=== PATIENT | male | born 1975 | race Caucasian/White ===

== ENCOUNTER 2022-08-09 21:43 | Observation (INO) ==
[2022-08-09] MEDS ORDERED: ONDANSETRON INJ 2 MG/ML 2 ML VIAL IV STA (22:02)
[2022-08-09] MEDS ORDERED: KETOROLAC 30 MG/ML VIAL IV STA (22:02)
--- NOTE | 2022-08-09 22:12 | Emergency Department Note ---
History of Present Illness General Chief complaint: Flank Pain Stated complaint: ABDOMINAL PAIN,TESTICAL PAIN,BACK PAIN Time Seen by Provider: 08/09/22 21:56 History of Present Illness Maximum Pain Intensity: 7 This is a 46-year-old male presenting to the emergency department for evaluation of left testicle pain that returned tonight. Patient was seen a few days ago here in the ER where ultrasound was performed as the patient has reported history of torsion in the past. Ultrasound did show good flow and he was started on doxycycline. He felt well for a few days, but had return of pain today. He rates the pain a 7/10, and it is more in his lower back on the left, although the left testicle is still involved as well. He has not had nausea or vomiting. No fevers or chills. He has not taken anything [id number] for symptoms. Home Medications Medication Instructions Recorded Confirmed Type buprenorphine 8 mg-naloxone 2 mg 1 film sublingual DAILY 08/05/22 08/09/22 History sublingual film doxycycline hyclate 100 mg capsule 100 mg PO BID 10 days #20 caps 08/05/22 08/09/22 Rx acetaminophen 500 mg tablet 1,000 mg PO Q6H PRN Pain 08/09/22 08/09/22 History (Tylenol Extra Strength) Allergies Allergy/AdvReac Type Severity Reaction Status Date / Time No Known Allergies Allergy Unknown Unverified 08/09/22 22:48 Past Med/Surg History Medical History No chronic diseases present Surgical History No significant past surgical history Social History Smoking Status: Never smoker Tobacco Type: Cigarettes Do You Dip or Chew Tobacco: Yes; Hx Alcohol Use: Yes Hx Substance Use: Yes Preferred Language: Malaysian Communication Ability: Effective 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 Beliefs That Will Affect Care: None Current Living Situation: Alone Feels Safe at Home: Yes Safety Concerns: Feels Safe At This Time Assistive Devices: None Review of Systems A total of 10 systems reviewed and were otherwise negative Physical Exam Vital Signs Vital Signs - 24 hr 08/09/22 21:51 05/24/23 23:48 Temperature 36.2 C L Temperature Source Temporal Artery Scan Pulse Rate 83 Pulse Rate [Finger] 85 Respiratory Rate 17 16 Respiratory Effort / Characteristics Non-Labored Spontaneous Non-Labored Spontaneous Respiratory Depth Normal Normal Blood Pressure [Left Arm] 160/105 H Blood Pressure Mean [Left Arm] 123 Blood Pressure Position Sitting Pulse Oximetry 100 95 Oxygen Delivery Method Room Air Room Air Sepsis Recent Fever Within 48 Hours No Sepsis New/Unexplained Change in Mental Status No Sepsis Action Taken by Nursing No Action Required VITALS: Vitals are noted on the nurse's note and reviewed by myself. Vital signs stable. GENERAL: Well-developed, well-nourished, white male, who is mildly uncomfortable appearing but overall pleasant and cooperative. HEAD: Normocephalic atraumatic. HEART: Regular rate and rhythm without murmurs gallops or rubs. LUNGS: Clear to auscultation bilaterally without wheezes, rales or rhonchi. No retractions or accessory muscle use. ABDOMEN: Positive normal bowel sounds x 4. Soft, nontender, without masses or organomegaly. No guarding or rebound tenderness. MUSCULOSKELETAL: No muscle atrophy, erythema, or edema noted. Full range of motion in all extremities. Course Administered Medications Lactated Ringer's (Lr) 1,000 mls @ 125 mls/hr IV .Q8H LISA Stop: 08/10/22 18:10 Last Admin: 08/10/22 02:31 Dose: 125 mls/hr Documented By: BREE Ketorolac Tromethamine (Ketorolac Tromethamine 15 Mg/Ml Vial) 15 mg IV Q6H PRN PRN Reason: Pain Stop: 08/15/22 02:10 Last Admin: 08/10/22 02:30 Dose: 15 mg Documented By: BREE Discontinued Medications Sodium Chloride (Nss 1000ml) 1,000 mls @ 999 mls/hr IV .Q1H1M LISA Stop: 08/09/22 23:15 Last Infusion: 08/10/22 00:59 Dose: 0 mls/hr Documented By: Admin: 08/09/22 22:20 Dose: 999 mls/hr Documented By: ALEXANDER Ceftriaxone Sodium (Rocephin) 2,000 mg in 70 mls @ 140 mls/hr IV NOW STA Stop: 08/10/22 00:24 Last Infusion: 08/10/22 00:59 Dose: 0 mls/hr Documented By: Admin: 08/10/22 00:11 Dose: 140 mls/hr Documented By: BEA Ketorolac Tromethamine (Ketorolac 30 Mg/Ml Vial) 30 mg IV NOW STA Stop: 08/09/22 22:03 Last Admin: 08/09/22 22:20 Dose: 30 mg Documented By: ALEXANDER Ondansetron HCl (Ondansetron Inj 2 Mg/Ml 2 Ml Vial) 4 mg IV NOW STA Stop: 08/09/22 22:03 Last Admin: 08/09/22 22:19 Dose: 4 mg Documented By: ALEXANDER Potassium Chloride (Potassium Chloride Crtab 20 Meq Tabcr) 40 meq PO NOW STA Stop: 08/10/22 02:12 Last Admin: 08/10/22 04:51 Dose: Not Given Documented By: BREE Tamsulosin HCl (Tamsulosin Hcl 0.4 Mg Cap) 0.4 mg PO NOW ONE Stop: 08/10/22 00:32 Last Admin: 08/10/22 00:58 Dose: 0.4 mg Documented By: BEA Medical Decision Making Differential Diagnosis Differential diagnosis: Etiologies such as shingles, pyelonephritis/UTI, renal colic, appendicitis, diverticulitis, mesenteric ischemia, torsion, aortic pathology, infections, inflammatory bowel disease, bowel obstruction, PUD, biliary pathology, as well as others were entertained. Laboratory Data 08/10/22 06:01 08/10/22 06:01 Lab Results 08/09/22 08/09/22 08/09/22 Range/Units 22:20 22:20 23:47 WBC 11.67 H (4.8-10.8) K/ul RBC 4.34 L (4.70-6.10) M/uL Hgb 13.6 L (14.0-18.0) g/dl Hct 38.0 L (42.0-52.0) % MCV 87.6 (80.0-100.0) fL MCH 31.3 (25.0-34.0) pg MCHC 35.8 (32.0-36.0) g/dL RDW Std Deviation 40.5 (36.4-46.3) fL RDW Coeff of Radha 12.7 (11.5-14.5) % Plt Count 293 (130-400) K/uL MPV 10.3 (9.4-12.4) fL Immature Gran % (Auto) 0.3 % Neut % (Auto) 76.1 % Lymph % (Auto) 14.7 % Atkinson % (Auto) 6.4 % Eos % (Auto) 2.1 % Baso % (Auto) 0.4 % Neut # (Auto) 8.87 H (1.40-6.50) K/uL Lymph # (Auto) 1.72 (1.2-3.4) K/uL Atkinson # (Auto) 0.75 H (0.11-0.59) K/uL Eos # (Auto) 0.24 (0-0.50) K/uL Baso # (Auto) 0.05 (0-0.2) K/uL Immature Gran # (Auto) 0.04 (0.01-0.20) K/uL Sodium 139 (136-145) mmol/L Potassium 3.4 L (3.5-5.1) mmol/L Chloride 103 (98-107) mmol/L Carbon Dioxide 27 (21-32) mmol/L Anion Gap 9 (3-11) BUN 8 (6-23) mg/dl Creatinine 1.18 (0.6-1.4) mg/dl Est Cr Clr Drug Dosing 106.6 ml/min Est GFR ( Amer) 85.9 ml/min Est GFR (Non-Af Amer) 74.1 ml/min BUN/Creatinine Ratio 6.8 L (10-20) Glucose 87 (70-99(Fasting)) mg/dl Calcium 8.7 (8.6-10.3) mg/dl Total Bilirubin 0.6 (0.2-1.0) mg/dl AST 22 (13-39) U/L ALT 25 (7-52) U/L Alkaline Phosphatase 77 (34-104) U/L Total Protein 6.9 (6.0-8.3) gm/dl Albumin 4.2 (3.4-5.0) gm/dl Globulin 2.7 (2.5-4.0) gm/dl Albumin/Globulin Ratio 1.6 (0.9-2) Lipase 55 (11-82) U/L Urine Color Yellow Urine Appearance Clear (Clear) Urine pH 7.5 (4.5-7.5) Ur Specific [place] 1.017 (1.000-1.030) Urine Protein Negative (Negative) Urine Glucose (UA) Negative (Negative) Urine Ketones Negative (Negative) Urine Blood Negative (Negative) Urine Nitrite Negative (Negative) Urine Bilirubin Negative (Negative) Urine Urobilinogen Negative (Negative) Ur Leukocyte Esterase Negative (Negative) SARS-CoV-2, RNA, NAAT (NEGATIVE) 08/10/22 Range/Units 00:12 WBC (4.8-10.8) K/ul RBC (4.70-6.10) M/uL Hgb (14.0-18.0) g/dl Hct (42.0-52.0) % MCV (80.0-100.0) fL MCH (25.0-34.0) pg MCHC (32.0-36.0) g/dL RDW Std Deviation (36.4-46.3) fL RDW Coeff of Radha (11.5-14.5) % Plt Count (130-400) K/uL MPV (9.4-12.4) fL Immature Gran % (Auto) % Neut % (Auto) % Lymph % (Auto) % Atkinson % (Auto) % Eos % (Auto) % Baso % (Auto) % Neut # (Auto) (1.40-6.50) K/uL Lymph # (Auto) (1.2-3.4) K/uL Atkinson # (Auto) (0.11-0.59) K/uL Eos # (Auto) (0-0.50) K/uL Baso # (Auto) (0-0.2) K/uL Immature Gran # (Auto) (0.01-0.20) K/uL Sodium (136-145) mmol/L Potassium (3.5-5.1) mmol/L Chloride (98-107) mmol/L Carbon Dioxide (21-32) mmol/L Anion Gap (3-11) BUN (6-23) mg/dl Creatinine (0.6-1.4) mg/dl Est Cr Clr Drug Dosing ml/min Est GFR ( Amer) ml/min Est GFR (Non-Af Amer) ml/min BUN/Creatinine Ratio (10-20) Glucose (70-99(Fasting)) mg/dl Calcium (8.6-10.3) mg/dl Total Bilirubin (0.2-1.0) mg/dl AST (13-39) U/L ALT (7-52) U/L Alkaline Phosphatase (34-104) U/L Total Protein (6.0-8.3) gm/dl Albumin (3.4-5.0) gm/dl Globulin (2.5-4.0) gm/dl Albumin/Globulin Ratio (0.9-2) Lipase (11-82) U/L Urine Color Urine Appearance (Clear) Urine pH (4.5-7.5) Ur Specific [place] (1.000-1.030) Urine Protein (Negative) Urine Glucose (UA) (Negative) Urine Ketones (Negative) Urine Blood (Negative) Urine Nitrite (Negative) Urine Bilirubin (Negative) Urine Urobilinogen (Negative) Ur Leukocyte Esterase (Negative) SARS-CoV-2, RNA, NAAT NEGATIVE (NEGATIVE) Imaging Data Radiologist's Impression: Abdomen/Pelvis CT 08/09/22 22:02 Exam(s): CT ABDOMEN + PELVIS Without Contrast EXAM: CT Abdomen and Pelvis Without Intravenous Contrast CLINICAL HISTORY: Reason for exam: left flank pain. TECHNIQUE: Axial computed tomography images of the abdomen and pelvis without intravenous contrast. CTDI is 9.85 mGy and DLP is 566.71 mGy-cm. Automated exposure control was utilized for the study. A dose lowering technique was utilized adhering to the principles of ALARA. COMPARISON: None. FINDINGS: Lung bases: Unremarkable. No mass. No consolidation. ABDOMEN: Liver: Unremarkable. Gallbladder and bile ducts: Unremarkable. No calcified stones. No ductal dilation. Pancreas: Unremarkable. No ductal dilation. Spleen: Unremarkable. No splenomegaly. Adrenals: Unremarkable. No mass. Kidneys and ureters: Obstructing left ureteropelvic junction calculus measuring approximately 6 mm with mild hydroureteronephrosis. Fat stranding about the left kidney is also seen. Stomach and bowel: Unremarkable. No obstruction. No mucosal thickening. PELVIS: Appendix: No findings to suggest acute appendicitis. Bladder: Unremarkable. No stones. Reproductive: Unremarkable as visualized. ABDOMEN and PELVIS: Intraperitoneal space: Unremarkable. No free air. No significant fluid collection. Bones/joints: Right pars defect of L5. Degenerative change seen in the spine. No acute fracture. No dislocation. Soft tissues: Unremarkable. Vasculature: Unremarkable. No abdominal aortic aneurysm. Lymph nodes: Unremarkable. No enlarged lymph nodes. IMPRESSION: Obstructing left ureteropelvic junction calculus measuring approximately 6 mm with mild hydroureteronephrosis. Fat stranding about the left kidney is also seen. Superimposed infection not excluded. Clinical correlation is recommended. Electronically signed by: Ricky Mendez MD 08/09/22 23:43 PM Scrotum Ultrasound 08/09/22 22:02 Exam(s): US SCROTAL EXAM: US Scrotum CLINICAL HISTORY: Reason for exam: left testicle pain. TECHNIQUE: Real-time ultrasound of the scrotum with color Doppler and image documentation. COMPARISON: Testicular ultrasound 08/05/2022. FINDINGS: Right testicle: Calcifications seen in the right testicle. No torsion. Left testicle: Unremarkable. No mass. No torsion. Epididymides: Left epididymal head cyst measuring 3 mm. Scrotum: Small bilateral hydroceles. IMPRESSION: No sonographic evidence of torsion. Electronically signed by: Ricky Mendez MD 08/09/22 23:46 PM MDM Narrative Physical exam and history were performed. Nursing notes, EMR, and Medication List were personally reviewed. No social concerns were identified as barriers to patients care. Patient appears to have return of pain to his left testicle. He is also having change in pain from when he was seen a few days ago, as he reports more left- sided back pain. IV access was established and labs were obtained. He was hydrated with normal saline and given IV Toradol and IV Zofran. Patient is with reported history of torsion in the past. He was sent to ultrasound to rule out torsion. He was sent to CT scan as well for further evaluation. Patient's blood work is as above and was reviewed. He does not have a significantly elevated white blood cell count, gross anemia, bandemia, or significant electrolyte imbalance. Transaminases are not diagnostic. Urine is without evidence of infection. Imaging studies were reviewed by myself and radiology. Ultrasound does not show evidence of torsion. CT scan is concerning as it does show a 6 mm mid ureteral calculi. This is likely causing his symptoms. There is concern on CT that there is stranding which may suggest ascending infectious process. He was started on Rocephin here in the ER. Overall the patient does not appear well for discharge home. Case was discussed with both the on-call hospitalist team and the on-call urology team. Please see their dictations for further patient course, plan, and disposition. The chart was completed utilizing [employer] Speech Voice Recognition Software. Grammatical errors, random word insertions, pronoun errors, and incomplete sentences are an occasional consequence of this system due to software limitations, ambient noise, and hardware issues. Any formal questions or concerns about the content, text, or information contained within the body of this dictation should be directly addressed to the provider for clarification. . Impression & Plan Ureterolithiasis Discharge Plan Visit Data Chief Complaint: Flank Pain Stated Complaint: ABDOMINAL PAIN,TESTICAL PAIN,BACK PAIN ED Provider: Aliyah Ac ED Midlevel Provider: Bandar Marcelino Discharge Problem: Ureterolithiasis Patient Disposition: Admitted As Inpatient Discharge Instructions Interventions: ED Discharge Assessment Last Done: 08/10/22 01:55
[2022-08-09] MEDS ORDERED: SODIUM CHLORIDE 0.9% 1000ML 1,000 ML IV SCH (22:15)
[2022-08-09 22:49] LABS: Basophils # (auto) 0.05 K/uL (0-0.2); Basophils % (auto) 0.4 %; Eosinophils # (auto) 0.24 K/uL (0-0.50); Eosinophils % (auto) 2.1 %; Hemoglobin 13.6 g/dl (14.0-18.0); Immature Granulocytes # (auto) 0.04 K/uL (0.01-0.20); Immature Granulocytes % (auto) 0.3 %; Lymphocytes # (auto) 1.72 K/uL (1.2-3.4); Lymphocytes % (auto) 14.7 %; Mean Corpuscular Hemoglobin 31.3 pg (25.0-34.0); Mean Corpuscular Hgb Conc 35.8 g/dL (32.0-36.0); Mean Corpuscular Volume 87.6 fL (80.0-100.0); Mean Platelet Volume 10.3 fL (9.4-12.4); Monocytes # (auto) 0.75 K/uL (0.11-0.59); Monocytes % (auto) 6.4 %; Neutrophils # (auto) 8.87 K/uL (1.40-6.50); Neutrophils % (auto) 76.1 %; Platelet Count 293 K/uL (130-400); RDW Coefficient of Variation 12.7 % (11.5-14.5); RDW Standard Deviation 40.5 fL (36.4-46.3); Red Blood Count 4.34 M/uL (4.70-6.10); White Blood Count 11.67 K/ul (4.8-10.8)
[2022-08-09 23:05] LABS: Albumin Globulin Ratio 1.6 (0.9-2); Albumin Level 4.2 gm/dl (3.4-5.0); BUN Creatinine Ratio 6.8 (10-20); Bilirubin,Total 0.6 mg/dl (0.2-1.0); Calcium 8.7 mg/dl (8.6-10.3); Creatinine Clr Calc Pharmacy 106.6 ml/min; Est GFR (African American) 85.9 ml/min; Est GFR (Non-African American) 74.1 ml/min; Globulin 2.7 gm/dl (2.5-4.0); Potassium 3.4 mmol/L (3.5-5.1); Total Protein 6.9 gm/dl (6.0-8.3)
--- NOTE | 2022-08-09 23:44 | CT Scan Report ---
Exam(s): CT ABDOMEN + PELVIS Without Contrast EXAM: CT Abdomen and Pelvis Without Intravenous Contrast CLINICAL HISTORY: Reason for exam: left flank pain. TECHNIQUE: Axial computed tomography images of the abdomen and pelvis without intravenous contrast. CTDI is 9.85 mGy and DLP is 566.71 mGy-cm. Automated exposure control was utilized for the study. A dose lowering technique was utilized adhering to the principles of ALARA. COMPARISON: None. FINDINGS: Lung bases: Unremarkable. No mass. No consolidation. ABDOMEN: Liver: Unremarkable. Gallbladder and bile ducts: Unremarkable. No calcified stones. No ductal dilation. Pancreas: Unremarkable. No ductal dilation. Spleen: Unremarkable. No splenomegaly. Adrenals: Unremarkable. No mass. Kidneys and ureters: Obstructing left ureteropelvic junction calculus measuring approximately 6 mm with mild hydroureteronephrosis. Fat stranding about the left kidney is also seen. Stomach and bowel: Unremarkable. No obstruction. No mucosal thickening. PELVIS: Appendix: No findings to suggest acute appendicitis. Bladder: Unremarkable. No stones. Reproductive: Unremarkable as visualized. ABDOMEN and PELVIS: Intraperitoneal space: Unremarkable. No free air. No significant fluid collection. Bones/joints: Right pars defect of L5. Degenerative change seen in the spine. No acute fracture. No dislocation. Soft tissues: Unremarkable. Vasculature: Unremarkable. No abdominal aortic aneurysm. Lymph nodes: Unremarkable. No enlarged lymph nodes. IMPRESSION: Obstructing left ureteropelvic junction calculus measuring approximately 6 mm with mild hydroureteronephrosis. Fat stranding about the left kidney is also seen. Superimposed infection not excluded. Clinical correlation is recommended. Electronically signed by: Ricky Mendez MD 08/09/22 23:43 PM
--- NOTE | 2022-08-09 23:47 | Ultrasound Report ---
Exam(s): US SCROTAL EXAM: US Scrotum CLINICAL HISTORY: Reason for exam: left testicle pain. TECHNIQUE: Real-time ultrasound of the scrotum with color Doppler and image documentation. COMPARISON: Testicular ultrasound 08/05/2022. FINDINGS: Right testicle: Calcifications seen in the right testicle. No torsion. Left testicle: Unremarkable. No mass. No torsion. Epididymides: Left epididymal head cyst measuring 3 mm. Scrotum: Small bilateral hydroceles. IMPRESSION: No sonographic evidence of torsion. Electronically signed by: Ricky Mendez MD 08/09/22 23:46 PM
[2022-08-09] MEDS ORDERED: cefTRIAXone SODIUM 2,000 MG/70 ML BAG IV STA (23:55)
[2022-08-09 23:57] LABS: Appearance Urine Clear (Clear); Bilirubin Urine Negative (Negative); Blood Urine Negative (Negative); Color Urine Yellow; Glucose Urine UA Negative (Negative); Ketones Urine Negative (Negative); Leukocyte Esterase Urine Negative (Negative); Nitrite Urine Negative (Negative); Protein Urine Negative (Negative); Specific Gravity Urine 1.017 (1.000-1.030); Urobilinogen Urine Negative (Negative); pH Urine 7.5 (4.5-7.5)
[2022-08-10] MEDS ORDERED: TAMSULOSIN HCL 0.4 MG CAP PO ONE (00:31)
--- NOTE | 2022-08-10 00:35 | Urology Consultation ---
Date of Consultation August 10, 2022 Assessment & Plan (1) Nephrolithiasis: I discussed with the treating clinician in the emergency department and as the patient has had recurrent pain and is noted to have a 6 mm obstructing stone with a potential superimposed infection he feels admission is warranted. He is having the hospitalist admit the patient and we recommend proceeding as follows from a urologic perspective: Provide analgesics Provide antiemetics Antibiotics in the form of Rocephin have been initiated. These should be continued. Although the patient's urinalysis is not indicative of infection there is some fat stranding around his left kidney. I therefore ordered a urine culture which can be followed and can assist with tailoring future antibiotic therapy. Flomax to be initiated for expulsive therapy. I have initiated the first dose of this medication Intravenous fluids to be provided for hydration purposes N.p.o. status should be implemented. The patient be reassessed the morning of 08/10/2022 to determine if patient will require cystoscopic intervention. At the present time the patient is afebrile with only a slight leukocytosis. He is normotensive without tachycardia. He also does not have acute kidney injury and is currently pain-free. I therefore feel we should trend trial of conservative stone passage this evening without the need for an emergency procedure. I have discussed with the patient that if he is unable to pass his stone consideration will be given to performing a cystoscopy. Additional recommendations be forthcoming based on his clinical course as it unfolds. History of Present Illness Reason for Consultation: Nephrolithiasis History of Present Illness This is a 46-year-old male who presented to the emergency department secondary to 5 days of left flank pain. Patient notes that the flank radiates across the left frontal portion of his abdomen into his left testicles. He has had some sweats and chills and reports a subjective fever although he admits he did not have a functional thermometer at home to check his temperature. He denies any nausea or vomiting. He denies any dysuria or hematuria. He notes that sometimes the pain does improve somewhat while he urinates. Patient says that he is able to urinate without difficulty. He says he has never had any kidney stones in the past. His most recent oral intake was approximately 2 hours ago at which time he would consume some liquids before arrival to the emergency department. Of note, the patient did present to the emergency department on 08/05/2022 with similar complaints. During this visit he did have labs were CBC revealed white blood cell count platelet count were normal. Hemoglobin and hematocrit were 13.5 and 39.4. Chemistry profile showed sodium was 141 with a potassium of 3.4. His BUN and creatinine were normal on this study. A urinalysis at that time revealed turbid urine with 3+ blood. There is 1+ bacteria on the study but no pyuria and negative leukocyte Estrace and negative nitrites. Imaging at that time consisted of a scrotal ultrasound that was essentially normal with only a trace left hydrocele and no comment about any testicular torsion. During this visit the patient was given 1 dose of intramuscular Rocephin and he was given a prescription for doxycycline to cover for possible orchitis or epididymitis as his primary complaint at that time was testicular pain. He was instructed to follow-up with urology or return to the emergency department for worsening symptoms Since arrival to hospital this evening the patient has had labs and imaging which I independently reviewed. The patient did have a scrotum ultrasound that showed no evidence of testicular torsion bilateral. He did have small bilateral hydroceles and a left epididymal cyst measuring approximately [address] scan of the abdomen and pelvis showed the patient had an obstructing 6 mm kidney stone at the left ureteropelvic junction. There is some fat stranding around the left kidney. Because of this fat stranding the interpreting radiologist could not exclude a superimposed infection. A CBC revealed a slight elevation of his white blood cell count at 11.6. Hemoglobin and hematocrit were 13.6 and 38.0. Platelet count was 293,000. CBC revealed sodium was within normal range and potassium was 3.4. BUN and creatinine were both noted to be normal. Patient did not have any elevation of LFTs or lipase. A urinalysis was not indicative of infection and a COVID test was pending. I did question the patient about his functional status and the patient says that he can easily walk 1 mile on a flat surface or he can negotiate 3-4 flights of steps without any chest pain or exertional dyspnea. He also reports he is not diabetic. At the time of my interview he was resting comfortably in bed and he was in no distress. By the time of my interview with the patient he also noted that his pain had resolved for the present time. Concerning past medical history the patient denies any medical problems except a past history of opioid dependence Concerning past surgical history he denies any surgeries Concerning social history he says he is a non-smoker Concerning family history he denies family history of coronary artery disease Allergies Allergy/AdvReac Type Severity Reaction Status Date / Time No Known Allergies Allergy Unknown Unverified 08/09/22 22:48 Home Medications Medication Instructions Recorded Confirmed Type buprenorphine 8 mg-naloxone 2 mg 1 film sublingual DAILY 08/05/22 08/09/22 History sublingual film doxycycline hyclate 100 mg capsule 100 mg PO BID 10 days #20 caps 08/05/22 08/09/22 Rx acetaminophen 500 mg tablet 1,000 mg PO Q6H PRN Pain 08/09/22 08/09/22 History (Tylenol Extra Strength) Patient History Medical History No chronic diseases present Surgical History No significant past surgical history Social History Smoking Status: Current some day smoker Tobacco Type: Cigarettes Preferred Language: Jordanian Feels Safe at Home: Yes Review of Systems Constitutional: + chills and + sweats; no fever Ear, Nose, Mouth, Throat: no hearing loss Respiratory: no cough and no dyspnea Cardiovascular: no chest pain Gastrointestinal: + abdominal pain (Radiating from left); no nausea and no vomiting Genitourinary: + as per Subjective / HPI Musculoskeletal: + back pain (Left flank) Integumentary: no rash Neurologic: no localized weakness Physical Exam Constitutional: WD/WN, vitals as above Eyes: no conjunctival abnormality ENMT: Ears: no hearing impairment and no external ear abnormality Mouth: no oropharynx abnormality Neck: trachea midline Respiratory: normal respiratory effort, lungs clear to auscultation Cardiovascular: Rate/Rhythm: regular rate and regular rhythm Vessels: dorsalis pedis pulses present and radial pulses present Gastrointestinal (Abdomen): Abdomen is rotund but soft. It is nondistended and nonrigid. Bowel sounds are present. Patient had very minor tenderness to palpation in the left lower quadrant but was otherwise free of pain with palpation. There is no rebound tenderness or guarding. Musculoskeletal: No calf tenderness. Feet are warm and nonmottled Skin: no rashes Neurologic: moves all extremities Psychiatric: A+Ox3, euthymic affect Genitourinary: No CVA tenderness with percussion at the time of my exam Results & Data Vital Signs (Past 12 Hours) Vital Signs Temp Pulse Pulse Resp BP Pulse Ox O2 Del Method 08/09/22 23:48 85 16 160/105 H 95 Room Air 08/09/22 21:51 36.2 C L 83 17 100 Room Air PG Care Time/CCT Total # of Minutes Spent Total Time Spent with Patient: Total time spent is greater than 50% in coordination of care (as documented) at patient's floor/unit and/or counseling patient: Coding Level of Care Code 69713 IN/OBS CONSULT LVL 5,80M Diagnoses Nephrolithiasis N20.0
--- NOTE | 2022-08-10 00:42 | History & Physical Report ---
Date of Service August 10, 2022 Assessment & Plan (1) Ureterolithiasis: Plan: -CTAP findings with 6 mm obstructing UPJ stone -Noted mild leukocytosis + bacteriuria though pt afebrile -S/p ceftriaxone given in ED, will continue -Urology consulted, appreciate recommendations -Zofran PRN nausea -Pain control- Tylenol PRN, Toradol PRN -IV fluid hydration ongoing -Continue Flomax -UCx pending -Trend CBC, BMP (2) Opioid use disorder: Plan: -Continue suboxone (3) Hypokalemia: Plan: -K 3.4 on admission -Repleted in ED -Monitor BMP Plan FENGI: NPO Code status: Full DVT ppx: SCDs, deferring chemoprophylaxis with ongoing hematuria Isolation: None Dispo: Medical/surgical History of Present Illness Chief Complaint: flank pain Primary Care Provider: [facility] PCP Pt is 46 yo M with PMH opioid use disorder on suboxone, previous testicular torsion presenting with flank pain. Pt did have ED visit on 08/05 for L testicular pain and hematuria. ER evaluation did not reveal torsion on US. He was discharged with doxycycline for concern for orchitis/epididymitis. He continues to have testicular flank with associated L flank pain radiating to lower L back and arrived back to ER. Reports subjective fever and chills, denies N/V, dysuria. Still having intermittent hematuria. Pt arrived to ER with BP 160/105, otherwise hemodynamically stable. Initial evaluation significant for WBC 11.7, K 3.4, UA with RBCs and bacteria. Repeat scrotal US w/o torsion. CTAP with obstructing L UPJ calculus 6mm with mild hydroureteronephrosis. ER interventions include Zofran, fluid repletion, ceftriaxone, Toradol. At present, pt reports mild flank pain relieved by Toradol. No new symptoms. Allergies Allergy/AdvReac Type Severity Reaction Status Date / Time No Known Allergies Allergy Unknown Unverified 08/09/22 22:48 Home Medications Medication Instructions Recorded Confirmed Type buprenorphine 8 mg-naloxone 2 mg 1 film sublingual DAILY 08/05/22 08/09/22 History sublingual film acetaminophen 500 mg tablet 1,000 mg PO Q6H PRN Pain 08/09/22 08/09/22 History (Tylenol Extra Strength) oxybutynin chloride 5 mg 5 mg PO DAILY #20 tabs 08/10/22 Rx tablet,extended release 24 hr (Ditropan XL) tamsulosin 0.4 mg capsule (Flomax) 0.4 mg PO DAILY #30 caps 08/10/22 Rx Past Med/Surg History Medical History No chronic diseases present Surgical History No significant past surgical history Social History Smoking Status: Never smoker Tobacco Type: Cigarettes Do You Dip or Chew Tobacco: Yes; Hx Alcohol Use: Yes Hx Substance Use: Yes Preferred Language: Lebanese Communication Ability: Effective Bag Shop Worker Required: No Beliefs That Will Affect Care: None Current Living Situation: Alone Feels Safe at Home: Yes Assistive Devices: None Review of Systems Review of Systems: Per HPI/Subjective Physical Exam Physical Exam: General: well-appearing, no acute distress HEENT: PERRL, EOMI, conjunctivae clear without injection, anicteric sclerae, moist mucous membranes, clear oropharynx without exudate or erythema Neck: supple, trachea midline, no thyromegaly, no JVD, no cervical lymphadenopathy CV: RRR, normal S1 and S2, no murmurs Resp: CTAB, no increased work of breathing, no crackles or wheezes Abd: Soft, nondistended, no guarding or rebound, no hepatosplenomegaly, +tender to L flank and L CVA tenderness, no suprapubic tenderness MSK: Normal bulk of all four extremities Neuro: AOx3, no focal motor or sensory deficits Skin: no rashes or lesions, warm and dry Ext: no LE peripheral edema or erythema, capillary refill <2s in all four extremities, 2+ LE peripheral pulses b/l Results & Data Results & Data Vital Signs (Past 12 Hours) Vital Signs Temp Pulse Pulse Resp BP Pulse Ox O2 Del Method 08/09/22 23:48 85 16 160/105 H 95 Room Air 08/09/22 21:51 36.2 C L 83 17 100 Room Air Supervising Physician Co-Signing Physician Notes Attending addendum: I have physically seen this patient, have supervised the medical residents activities, and agree with the H&P unless as otherwise noted. Assessment and Plan: 6 mm left UPJ stone/hydronephrosis- N.p.o. after midnight Status post 1 L normal saline in ED, Toradol 30 mg IV Ceftriaxone 2 g IV daily Follow urine culture sensitivity Zofran 4 mg IV every 6 hours as needed Tamsulosin 0.4 mg at bedtime Consult urology Remaining orders and notations as noted Resident Activity Tracking Resident Involvement: Resident Care Provided Care Provided: Adult Hospital Medicine
[2022-08-10] MEDS ORDERED: KETOROLAC TROMETHAMINE 15 MG/ML VIAL IV PRN (02:11)
[2022-08-10] MEDS ORDERED: cefTRIAXone SODIUM 1,000 MG in DEXTROSE 5% AD-VAN 50 ML IV SCH (02:11)
[2022-08-10] MEDS ORDERED: ACETAMINOPHEN 1,000 MG/100 ML VIAL IV PRN (02:11)
[2022-08-10] MEDS ORDERED: POTASSIUM CHLORIDE CRTAB 20 MEQ TABCR PO STA ×2 (02:11→14:31)
[2022-08-10] MEDS: LACTATED RINGER'S 1,000 ML IV SCH ×2 (02:31→11:58)
[2022-08-10 06:30] LABS: Hematocrit (blood only) 36.2 % (42.0-52.0); Hemoglobin 12.9 g/dl (14.0-18.0); Mean Corpuscular Hemoglobin 30.9 pg (25.0-34.0); Mean Corpuscular Hgb Conc 35.6 g/dL (32.0-36.0); Mean Corpuscular Volume 86.6 fL (80.0-100.0); Mean Platelet Volume 10.4 fL (9.4-12.4); Platelet Count 266 K/uL (130-400); RDW Coefficient of Variation 12.8 % (11.5-14.5); RDW Standard Deviation 40.3 fL (36.4-46.3); Red Blood Count 4.18 M/uL (4.70-6.10); White Blood Count 8.97 K/ul (4.8-10.8)
[2022-08-10 06:49] LABS: BUN Creatinine Ratio 8.6 (10-20); Calcium 8.6 mg/dl (8.6-10.3); Creatinine Clr Calc Pharmacy 120.1 ml/min; Est GFR (African American) 98.9 ml/min; Est GFR (Non-African American) 85.3 ml/min; Potassium 3.4 mmol/L (3.5-5.1)
--- NOTE | 2022-08-10 08:01 | Urology Progress Note ---
Date of Service August 10, 2022 Assessment & Plan (1) Ureterolithiasis: Plan: Follow-up of 6mm left proximal ureteral stone. He is afebrile and hemodynamically stable. Urine culture is pending. He is on IV Rocephin. Denies stone passage overnight. Continues to be symptomatic with episodes of pain. Discussed options for stone management including trial of passage vs surgical intervention while inpatient in the form of left ureteral stent placement today. We discussed outpatient surgical options including ESWL or ureteroscopy, laser lithotripsy, and stent placement if pain is controlled and he can be discharged to home. Procedures, success rates, risks, benefits and clinical courses reviewed. Stone free rates were also discussed as well as possibility of multiple procedures. Ureteral stents were discussed as well as post-operative issues and pain management. - Patient wishes to proceed with surgical intervention today. - Plan for cystoscopy, left retrograde pyelogram and left ureteral stent placement today. - Risks and benefits of procedure to be reviewed with patient by Dr. Ferrell. OR notified. - We discussed need for stone treatment at a later date. He verbalizes good understanding. - Expected clinical course reviewed, all questions answered. - Will cover with scheduled IV Ceftriaxone preoperatively. - Keep NPO for procedure. - Continue supportive care and management per hospital medicine service. Admission and Anticipated Discharge Date Admission Date: August 10, 2022 Supervising Physician Co-Signing Physician Notes Discussed patient with RICKEY. Agree with plan. Plan to go to OR for cysto, left retrograde, left stent Subjective Patient seen and examined at bedside this morning. He is awake and resting in bed. Denies stone passage overnight. Reports intermittent discomfort overnight in left flank as well as left abdomen and groin at times. No nausea or vomiting. No fever or chills. He is voiding without difficulty. Denies dysuria or hematuria. He is NPO. No prior stone history. Review of Systems Constitutional: as per Subjective / HPI Gastrointestinal: as per Subjective / HPI Genitourinary: + as per Subjective / HPI Physical Exam Constitutional: well developed and well nourished; no acute distress and not ill appearing Neck: trachea midline Respiratory: normal respiratory effort; no respiratory distress and no labored breathing Cardiovascular: Rate/Rhythm: regular rate Extremities: no pedal edema Gastrointestinal (Abdomen): Inspection/Auscultation: abdomen normal to inspection; abdomen not distended Percussion/Palpation: abdomen soft; abdomen nontender Musculoskeletal: Head/Neck/Chest: normocephalic and head atraumatic Neurologic: moves all extremities and awake Psychiatric: Orientation: alert and oriented x 3 Genitourinary: no CVA tenderness Results & Data Vital Signs (Past 12 Hours) Vital Signs Temp Pulse Pulse Resp BP Pulse Ox O2 Del Method 08/10/22 07:40 36.5 C 77 18 152/87 H 98 Room Air 08/10/22 02:00 36.6 C 74 14 160/90 H 95 Room Air 08/10/22 01:54 82 16 141/110 H 96 Room Air 08/10/22 01:55 Room Air 08/10/22 01:03 80 16 149/97 H 98 Room Air 08/09/22 23:48 85 16 160/105 H 95 Room Air 08/09/22 21:51 36.2 C L 83 17 100 Room Air PG Care Time/CCT Total # of Minutes Spent Total Time Spent with Patient: Total time spent is greater than 50% in coordination of care (as documented) at patient's floor/unit and/or counseling patient: Coding Level of Care Code None Diagnoses Ureterolithiasis N20.1
[2022-08-10] MEDS ORDERED: TAMSULOSIN HCL 0.4 MG CAP PO SCH (09:00)
[2022-08-10] MEDS ORDERED: BUPRENORPHINE/NALOXONE 8/2 MG TAB SL SCH ×2 (09:00)
[2022-08-10] MEDS ORDERED: fentaNYL citrate PF 100 MCG/2 ML VIAL ONE (09:47)
[2022-08-10] MEDS ORDERED: PROPOFOL IV EMULSION 10 MG/ML 20 ML VIAL IV ONE ×2 (09:47→11:08)
[2022-08-10] MEDS ORDERED: MIDAZOLAM HCL 1 MG/ML 2ML VIAL ONE (09:47)
[2022-08-10] MEDS ORDERED: LIDOCAINE 2% 2 ML VIAL/AMP(20MG/ML) INFIL ONE (09:47)
[2022-08-10] MEDS ORDERED: NALOXONE HCL 0.4 MG/1 ML VIAL/CARP IV PRN (10:42)
[2022-08-10] MEDS ORDERED: ATROPINE SULFATE 0.1 MG/ML 10ML SYR IV PRN (10:42)
[2022-08-10] MEDS ORDERED: PROMETHAZINE HCL 12.5 MG in SODIUM CHLORIDE 0.9% 50 ML IV PRN (10:42)
[2022-08-10] MEDS ORDERED: FLUMAZENIL 0.1 MG/1 ML 10 ML VIAL IV PRN (10:42)
[2022-08-10] MEDS ORDERED: ONDANSETRON INJ 2 MG/ML 2 ML VIAL IV PRN (10:42)
[2022-08-10] MEDS ORDERED: ePHEDrine sulfate 50 MG/ML AMP IV PRN (10:42)
[2022-08-10] MEDS ORDERED: LABETALOL HCL IV 5 MG/ML 20ML IV PRN (10:42)
[2022-08-10] MEDS ORDERED: fentaNYL citrate PF 100 MCG/2 ML VIAL IV PRN (10:42)
--- NOTE | 2022-08-10 10:42 | Anesthesiology Consultation ---
Date of Service August 10, 2022 Assessment & Plan Chart Review Chart Review: Acceptable Risk for Surgery and Patient NOT seen in Pre Admission Testing Consults Requested none ASA ASA2 Proposed Anesthesia Anesthesia Type: General Risk / Benefits Reviewed With: PT / POA / Parent / Guardian, Accepts Plan and Informed Consent Obtained History Surgery Operation Date: 08/10/22 07:00 Proposed Procedures p Cystoscopy Left Retrograde Pyelogram, Left Ureteral Stent - Preston Ferrell MD Height/Weight Height: 5 ft 11 in Weight: 126 kg Allergies Allergy/AdvReac Type Severity Reaction Status Date / Time No Known Allergies Allergy Unknown Unverified 08/09/22 22:48 Medications Home Medications Medication Instructions Recorded Confirmed Last Taken buprenorphine 8 mg-naloxone 2 mg 1 film sublingual DAILY 08/05/22 08/09/22 08/09/22 17:30 sublingual film doxycycline hyclate 100 mg capsule 100 mg PO BID 10 days #20 caps 08/05/22 08/09/22 08/09/22 11:00 acetaminophen 500 mg tablet 1,000 mg PO Q6H PRN Pain 08/09/22 08/09/22 08/09/22 (Tylenol Extra Strength) Active Medications Generic Name Dose Route Start Last Admin Trade Name Freq PRN Reason Stop Dose Admin Buprenorphine/Naloxone 0.5 tab 08/10/22 09:00 08/10/22 09:12 Buprenorphine/Naloxone 8/2 Mg Tab SL 09/09/22 08:59 Not Given BID LISA Acetaminophen 1,000 mg in 100 mls @ 400 mls/hr 08/10/22 02:11 08/10/22 09:11 Ofirmev IV 08/13/22 02:10 Infused Q8H PRN Infusion pain- second line Lactated Ringer's 1,000 mls @ 125 mls/hr 08/10/22 02:11 08/10/22 02:31 Lr IV 08/10/22 18:10 125 mls/hr .Q8H LISA Administration Ketorolac Tromethamine 15 mg 08/10/22 02:11 08/10/22 02:30 Ketorolac Tromethamine 15 Mg/Ml Vial IV 08/15/22 02:10 15 mg Q6H PRN Administration Pain Tamsulosin HCl 0.4 mg 08/10/22 09:00 08/10/22 08:14 Tamsulosin Hcl 0.4 Mg Cap PO 09/09/22 08:59 0.4 mg QAM LISA Administration NPO Date Last Intake of Fluids: 08/10/22 Time Last Intake of Fluids: 08:00 Date Last Intake of Solids: 08/08/22 Time Last Intake of Solids: 18:00 Past Medical History Medical History No chronic diseases present Exercise / Class Metabolic Activity II 4-5 Yardwork/Stairs/Walk up hill Past Surgical History Surgical History No significant past surgical history Past Anesthesia History No Hx of Anesthesia Complications and No Family Hx of Anesthesia Complications History of PONV No Hx of PONV and No Hx of Motion Sickness Social History Smoking Status: Never smoker tobacco type: smokeless tobacco Do You Dip or Chew Tobacco: Yes Hx Alcohol Use: Yes alcohol intake frequency: a few times a week Hx Substance Use: Yes Physical Exam Vital Signs Last Vital Signs Temp 36.6 C 08/10/22 09:39 Pulse 73 08/10/22 09:39 Resp 16 08/10/22 09:39 BP 159/86 H 08/10/22 09:39 Pulse Ox 96 08/10/22 09:39 O2 Del Method Room Air 08/10/22 09:39 Constitutional + morbidly obese ENMT Mouth: no dentition abnormality Thyromental Distance: > or= 3.5 Finger Breadths Mallampati Class: III Neck normal visual inspection, trachea midline and + facial hair; neck extension not limited Respiratory normal respiratory effort Auscultation: lungs clear to auscultation bilaterally Cardiovascular Rate/Rhythm: regular rate and regular rhythm Heart Sounds: no murmur Vessels: no carotid bruit Musculoskeletal Spine: normal cervical ROM and no pain with cervical ROM Extremities: extremities normal to inspection; full ROM of extremities Neurologic moves all extremities Motor/Sensory: no sensory deficit Psychiatric Orientation: alert and oriented x 3 Testing Laboratory Results 08/10/22 06:01 08/10/22 06:01 Urine Color Yellow 08/09/22 23:47 Urine Appearance Clear (Clear) 08/09/22 23:47 Urine pH 7.5 (4.5-7.5) 08/09/22 23:47 Ur Specific [place] 1.017 (1.000-1.030) 08/09/22 23:47 Urine Protein Negative (Negative) 08/09/22 23:47 Urine Glucose (UA) Negative (Negative) 08/09/22 23:47 Urine Ketones Negative (Negative) 08/09/22 23:47 Urine Nitrite Negative (Negative) 08/09/22 23:47 Ur Leukocyte Esterase Negative (Negative) 08/09/22 23:47
[2022-08-10] MEDS ORDERED: KETAMINE 50 MG/5 ML SYRINGE ONE (10:58)
[2022-08-10] MEDS ORDERED: KETOROLAC 30 MG/ML VIAL ONE (11:08)
--- NOTE | 2022-08-10 11:08 | Post Operative Brief Note ---
PG Immediate Post Op with CF Date of Surgery August 10, 2022 Pre & Post Diagnosis Left ureteral calculus Operation Date: 08/10/22 07:00 <No data on this case meets the specified criteria> I identified the patient and participated in the time-out.: Yes Procedure Cystoscopy, left retrograde pyelogram with radiographic interpretation, left ureteral stent placement Operation Date: 08/10/22 07:00 <No data on this case meets the specified criteria> Surgeon Preston Ferrell MD Stroke Program Coordinator None Estimated Blood Loss 0 Findings See Below retrograde showed moderate left hydronephrosis. Stent in appropriate position. Anesthesia Type General Complications none
--- NOTE | 2022-08-10 11:16 | Operative Report ---
PG Post Operative Report Pre & Post Diagnosis Operation Date: 08/10/22 07:00 Pre-Op Diagnosis: Kidney Stone Post-Op Diagnosis: Kidney Stone I identified the patient and participated in the time-out.: Yes Procedure Operation Date: 08/10/22 07:00 Actual Procedures p Cystoscopy Left Retrograde Pyelogram with radiographic interpretation, Left Ureteral Stent(Not Applicable) - Preston Ferrell MD Surgeon Preston Ferrell MD Bumboater None Estimated Blood Loss 0 Findings See Below Moderate left hydro. Stent in appropriate position. Specimens None Drains 6 Tajik by 26 cm left ureteral stent Anesthesia Type General Complications none Indications 46-year-old male with a 6 mm left proximal obstructing ureteral calculus and intractable pain. Options discussed and patient requested stent placement. Description of Procedure After informed consent was obtained, the patient was transported operative suite. MAC anesthesia was induced. The patient was placed in dorsal lithotomy position prepped and draped in a sterile fashion. They received preoperative ceftriaxone for antibiotic prophylaxis. An appropriate surgical timeout was performed. A 22 Tajik rigid scope was inserted per urethra into the bladder. Goff cystoscopy revealed no stones or lesions. I turned my attention the left ureteral orifice and intubated this with a 5 Tajik open-ended catheter. A left retrograde pyelogram was shot which showed moderate left hydro. A sensor wire was advanced into the kidney and confirmed fluoroscopically. A 6 Tajik by 26 cm left ureteral stent was deployed with a good proximal coil in the renal pelvis and a good distal coil noted in the bladder. These were confirmed fluoroscopically and under direct visualization, respectively. The bladder was emptied and the scope was removed. This concluded the end of the case. All counts were correct at the end of the case. I was present, scrubbed, and actively participated for the entirety of the pr ocedure. I attest to the content of the Intraoperative Record and any orders documented therein. Any exceptions are noted below.
[2022-08-10] MEDS ORDERED: DIATRIZOATE MEGLUMINE 30% 100ML VIAL INSTIL ONE (11:18)
--- NOTE | 2022-08-10 11:21 | Fluoroscopy Report ---
FL retrograde includes kub CLINICAL HISTORY: RETROGRADE WITH LEFT SIDED STENT PLACEMENT COMPARISON STUDY: Abdomen and pelvis CT 08/09/2022. FLUOROSCOPY TIME: 8 seconds FLUOROSCOPY IMAGES: 2 Ka,r: 4.7 mGy FINDINGS: Retrograde opacification of the left renal collecting system followed by placement of a lef t ureteral stent. Only proximal portion of the stent is identified. IMPRESSION: Fluoroscopic assistance as above. ACT 112: Negative or not required by law. Electronically signed by: Tanner Jones M.D. 08/10/2022 11:20 AM
--- NOTE | 2022-08-10 14:01 | Anesthesiology Progress Note ---
Date of Service August 10, 2022 Anesthesia Post Procedure Vital Signs Vital Signs: Temp Pulse Pulse Pulse Resp BP Pulse Ox 08/10/22 13:55 89 18 158/90 H 99 08/10/22 12:56 36.5 C 75 18 145/93 H 96 08/10/22 12:28 36.3 C L 67 16 143/92 H 96 08/10/22 11:55 36.5 C 75 16 147/90 H 94 08/10/22 11:40 36.3 C L 78 16 151/85 H 95 08/10/22 11:30 78 16 145/87 H 94 08/10/22 11:20 87 16 146/94 H 95 08/10/22 11:16 36.2 C L 90 12 147/93 H 98 08/10/22 09:39 36.6 C 73 16 159/86 H 96 08/10/22 07:40 36.5 C 77 18 152/87 H 98 08/10/22 02:00 36.6 C 74 14 160/90 H 95 08/10/22 01:54 82 16 141/110 H 96 08/10/22 01:55 08/10/22 01:03 80 16 149/97 H 98 08/09/22 23:48 85 16 160/105 H 95 08/09/22 21:51 36.2 C L 83 17 100 O2 Del Method O2 Flow Rate 08/10/22 13:55 Room Air 08/10/22 12:56 Room Air 08/10/22 12:28 Room Air 08/10/22 11:55 Room Air 08/10/22 11:40 Room Air 08/10/22 11:30 Room Air 08/10/22 11:20 Room Air 08/10/22 11:16 Oxymask 6 08/10/22 09:39 Room Air 08/10/22 07:40 Room Air 08/10/22 02:00 Room Air 08/10/22 01:54 Room Air 08/10/22 01:55 Room Air 08/10/22 01:03 Room Air 08/09/22 23:48 Room Air 08/09/22 21:51 Room Air Pain Intensity Left Testicles: Pain Intensity: 7 Left Flank: Pain Intensity: 0 Transfer of Care Handoff Completed per policy Notes Mental Status: alert / awake / arousable and participated in evaluation Patient Amnestic to Procedure: Yes Nausea / Vomiting: adequately controlled Pain: adequately controlled Airway Patency, RR, SpO2: stable & adequate BP & HR: stable & adequate Hydration State: stable & adequate Anesthetic Complications: no major complications apparent and Pt Satisfied with anesthetic care
--- NOTE | 2022-08-10 14:41 | Discharge Summary ---
Date of Service August 10, 2022 Admission HPI Per Admitting Provider Pt is 46 yo M with PMH opioid use disorder on suboxone, previous testicular torsion presenting with flank pain. Pt did have ED visit on 08/05 for L testicular pain and hematuria. ER evaluation did not reveal torsion on US. He was discharged with doxycycline for concern for orchitis/epididymitis. He continues to have testicular flank with associated L flank pain radiating to lower L back and arrived back to ER. Reports subjective fever and chills, denies N/V, dysuria. Still having intermittent hematuria. Pt arrived to ER with BP 160/105, otherwise hemodynamically stable. Initial evaluation significant for WBC 11.7, K 3.4, UA with RBCs and bacteria. Repeat scrotal US w/o torsion. CTAP with obstructing L UPJ calculus 6mm with mild hydroureteronephrosis. ER interventions include Zofran, fluid repletion, ceftriaxone, Toradol. At present, pt reports mild flank pain relieved by Toradol. No new symptoms. Principal Diagnosis L ureterolithiasis w/ mild hydronephrosis Discharge Exam GENERAL: 46 yo well-developed, well-nourished M. AAOx4. NAD. LUNGS: Clear to auscultation bilaterally w/o W/R/R. CARDIOVASCULAR: Regular rate and rhythm. ABDOMEN: Soft, non-tender and non-distended. BS normoactive x 4 quad. Discharge Data Allergies Allergy/AdvReac Type Severity Reaction Status Date / Time No Known Allergies Allergy Unknown Unverified 08/09/22 22:48 Consultations 08/10/22 00:21 ED Decision to Admit Stat 08/10/22 02:11 Consult Urology Routine Procedures Performed Operation Date: 08/10/22 07:00 Actual Procedures p Cystoscopy Left Retrograde Pyelogram, Left Ureteral Stent(Not Applicable) - Preston Ferrell MD Ordered Studies Abdomen/Pelvis CT 08/09/22 22:02 Exam(s): CT ABDOMEN + PELVIS Without Contrast EXAM: CT Abdomen and Pelvis Without Intravenous Contrast CLINICAL HISTORY: Reason for exam: left flank pain. TECHNIQUE: Axial computed tomography images of the abdomen and pelvis without intravenous contrast. CTDI is 9.85 mGy and DLP is 566.71 mGy-cm. Automated exposure control was utilized for the study. A dose lowering technique was utilized adhering to the principles of ALARA. COMPARISON: None. FINDINGS: Lung bases: Unremarkable. No mass. No consolidation. ABDOMEN: Liver: Unremarkable. Gallbladder and bile ducts: Unremarkable. No calcified stones. No ductal dilation. Pancreas: Unremarkable. No ductal dilation. Spleen: Unremarkable. No splenomegaly. Adrenals: Unremarkable. No mass. Kidneys and ureters: Obstructing left ureteropelvic junction calculus measuring approximately 6 mm with mild hydroureteronephrosis. Fat stranding about the left kidney is also seen. Stomach and bowel: Unremarkable. No obstruction. No mucosal thickening. PELVIS: Appendix: No findings to suggest acute appendicitis. Bladder: Unremarkable. No stones. Reproductive: Unremarkable as visualized. ABDOMEN and PELVIS: Intraperitoneal space: Unremarkable. No free air. No significant fluid collection. Bones/joints: Right pars defect of L5. Degenerative change seen in the spine. No acute fracture. No dislocation. Soft tissues: Unremarkable. Vasculature: Unremarkable. No abdominal aortic aneurysm. Lymph nodes: Unremarkable. No enlarged lymph nodes. IMPRESSION: Obstructing left ureteropelvic junction calculus measuring approximately 6 mm with mild hydroureteronephrosis. Fat stranding about the left kidney is also seen. Superimposed infection not excluded. Clinical correlation is recommended. Electronically signed by: Ricky Mendez MD 08/09/22 23:43 PM Scrotum Ultrasound 08/09/22 22:02 Exam(s): US SCROTAL EXAM: US Scrotum CLINICAL HISTORY: Reason for exam: left testicle pain. TECHNIQUE: Real-time ultrasound of the scrotum with color Doppler and image documentation. COMPARISON: Testicular ultrasound 08/05/2022. FINDINGS: Right testicle: Calcifications seen in the right testicle. No torsion. Left testicle: Unremarkable. No mass. No torsion. Epididymides: Left epididymal head cyst measuring 3 mm. Scrotum: Small bilateral hydroceles. IMPRESSION: No sonographic evidence of torsion. Electronically signed by: Ricky Mendez MD 08/09/22 23:46 PM Retrograde Pyelogram 08/10/22 00:00 FL retrograde includes kub CLINICAL HISTORY: RETROGRADE WITH LEFT SIDED STENT PLACEMENT COMPARISON STUDY: Abdomen and pelvis CT 08/09/2022. FLUOROSCOPY TIME: 8 seconds FLUOROSCOPY IMAGES: 2 Ka,r: 4.7 mGy FINDINGS: Retrograde opacification of the left renal collecting system followed by placement of a left ureteral stent. Only proximal portion of the stent is identified. IMPRESSION: Fluoroscopic assistance as above. ACT 112: Negative or not required by law. Electronically signed by: Tanner Jones M.D. 08/10/2022 11:20 AM Hospital Course (1) Ureterolithiasis: Acute - CTAP findings with 6 mm obstructing UPJ stone - Noted mild leukocytosis + bacteriuria though pt afebrile - S/p ceftriaxone given in ED which was continued - Aggressively hydrated with LR - Urology consulted, appreciate recommendations - Underwent cystoscopy and L stent placement by Dr. Ferrell on 08/10 - He tolerated procedure well, is good from urology standpoint for d/c and outp atient f/u - Continue Flomax & Ditropan, rx given to pt - Rx also sent for OxyIR for breakthrough stent pain that is not relieved by APAP or Ibuprofen - UCx pending - cbc w/ normal wbc count today, no diff ordered (2) Opioid use disorder: Chronic - Managed with suboxone - Of note, while on this med, will inhibit the effects of OxyIR if taken to control flank pain from stent Plan Patient is medically and hemodynamically stable for discharge home today with outpatient follow up with urology with instructions to seek prompt evaluation if unable to void, high fever, or uncontrolled pain. Plan has been d/w Dr. Angela who is in agreement with aforementioned. Total Time Total Time Spent Total Time Spent (In Minutes): 35 minutes Discharge Plan Discharge Items Patient Disposition: Home - Self-Care Reason For Visit: KIDNEY STONE Discharge Diagnosis: L kidney stone with stent placement Activity: Resume your previous activity Non-emergency contact: Primary Care Provider and Urologist Call non-emergency contact if: you have any medication questions and your symptoms worsen Follow-up/Referrals: Preston Ferrell MD [Physician] - PCP,NO [Primary Care Provider] - Diet: Regular Addtl Attending Provider Instructions: Take Tylenol and ibuprofen as needed for pain. Oxycodone for breakthrough pain. DO NOT drive or operate machinery while taking Oxycodone. Continue taking Flomax as this can help with stent discomfort. Oxybutynin as needed, however this can cause dry mouth, constipation and difficulty urinating so only use when necessary. If you are not having bother from the stent, you do not need to take any occasions. MiraLAX [id number] as needed for constipation. It is normal to have blood in his urine while the stent is in place. The more activity perform, the bloody or your urine will be. This is okay as long as you are able to urinate. You will be called regarding a follow-up appointment to determine stone treatment. Call the office earlier with fevers or uncontrolled pain. Pending Studies at Discharge: No Stand-Alone Forms: My [facility], Smoking Cessation Medications and DC Order Prescriptions: New tamsulosin [Flomax] 0.4 mg capsule 0.4 mg PO DAILY Qty: 30 0RF oxybutynin chloride [Ditropan XL] 5 mg tablet extended release 24hr 5 mg PO DAILY Qty: 20 0RF oxycodone 5 mg tablet 5 mg PO Q6H PRN (Reason: pain) Qty: 5 0RF Continued buprenorphine-naloxone 8-2 mg film 1 film sublingual DAILY acetaminophen [Tylenol Extra Strength] 500 mg Tablet 1,000 mg PO Q6H PRN (Reason: Pain) Discontinued doxycycline hyclate 100 mg capsule 100 mg PO BID 10 Days Qty: 20 0RF Discharge Orders: Discharge Order (Routine); Ordered 08/10/22 Ordered By: Divya Montanez Admission Data Admit Date/Time: 08/10/22 00:41 Attending Provider: Naldo Angela Admit Provider: Alexey Torres Primary Care Provider: PCP,NO Other Providers: Miles Magana ; Matthew Zee ; Chava Reynaga ; Boo Nails ; Vibha Ingram ; Ponce Olson ; Rachele Aburto ; Anahi Nicholson ; Richie Dubon ; Nathan Flaherty ; Carlyn Valiente ; Naldo Lilly ; Preston Ferrell Coding Level of Care Code 76311 INP/OBS DISCH >30 MIN Diagnoses Ureterolithiasis N20.1 Opioid use disorder F11.90
--- NOTE | 2022-08-10 22:20 | Billing Data ---
Date of Service August 10, 2022 Coding Level of Care Code 72235 INT INP/OBS CARE
[2022-08-11] MEDS ORDERED: cefTRIAXone SODIUM 2,000 MG in DEXTROSE 5% 50 ML IV SCH
== END 2022-08-10 16:06 | disposition home or self-care (01) | DRG 661 ==
LOC: ED 21:43 → 3E 08-10 00:41 → INTOOBSV 08-10 00:41 → SUATTDRO 08-10 00:41 → 3E 08-10 01:55

== ENCOUNTER 2023-05-10 15:59 | Inpatient (IN) ==
--- NOTE | 2023-05-10 16:19 | ED Triage Note ---
Date of Service May 10, 2023 Provider in Triage Author: Bandar Marcelino A History of Present Illness This patient was briefly evaluated while in triage. An abbreviated physical exam was performed. This patient is a 47-year-old Male who presents to the ED for evaluation of continued Kidney stone pain. Was seen in this ER 3 days ago and had a 5mm proximal LEFT side ureteral stone. Patient is leaving on a cruise this weekend and is worried it wont be resolved before he leaves. Pain is the same as it has been with nausea. No fever. Physical Exam Limited Triage Exam: VITALS: Vitals are noted on the nurse's note and reviewed by myself. Vital signs stable. GENERAL: Well-developed, well-nourished, white male, who is in no acute distress and resting comfortably. Patient is cooperative with the examination. HEART: Regular rate and rhythm without murmurs gallops or rubs. LUNGS: Clear to auscultation bilaterally without wheezes, rales or rhonchi. No retractions or accessory muscle use. NEURO: Patient was alert and oriented to person place and time. CN II through XII grossly intact. Initial orders for labs and / or imaging were placed and patient was placed in the waiting area until a bed is available. Please see further documentation for the full ED course. MDM / Impression Impression Impression: Renal colic on left side, Left ureteral calculus
[2023-05-10 17:33] LABS: Basophils # (auto) 0.03 K/uL (0.00-0.20); Basophils % (auto) 0.3 %; Eosinophils # (auto) 0.28 K/uL (0.00-0.50); Eosinophils % (auto) 3.1 %; Hematocrit (blood only) 37.9 % (42.0-52.0); Hemoglobin 12.9 g/dl (14.0-18.0); Immature Granulocytes # (auto) 0.02 K/uL (0.01-0.20); Immature Granulocytes % (auto) 0.2 %; Lymphocytes % (auto) 18.9 %; Mean Corpuscular Hemoglobin 30.3 pg (25.0-34.0); Mean Platelet Volume 10.1 fL (9.4-12.4); Monocytes # (auto) 0.91 K/uL (0.11-0.59); Monocytes % (auto) 10.1 %; Neutrophils # (auto) 6.04 K/uL (1.40-6.50); Neutrophils % (auto) 67.4 %; Platelet Count 264 K/uL (130-400); RDW Coefficient of Variation 12.8 % (11.5-14.5); RDW Standard Deviation 41.7 fL (36.4-46.3); Red Blood Count 4.26 M/uL (4.70-6.10); White Blood Count 8.98 K/ul (4.8-10.8)
[2023-05-10 17:38] LABS: Appearance Urine Clear (Clear); Bilirubin Urine Negative (Negative); Blood Urine Negative (Negative); Color Urine Yellow; Glucose Urine UA Negative (Negative); Ketones Urine Negative (Negative); Leukocyte Esterase Urine Negative (Negative); Nitrite Urine Negative (Negative); Protein Urine Negative (Negative); Specific Gravity Urine 1.017 (1.000-1.030); Urobilinogen Urine Negative (Negative)
[2023-05-10 17:49] LABS: Albumin Globulin Ratio 1.5 (0.9-2); Albumin Level 4.2 gm/dl (3.4-5.0); BUN Creatinine Ratio 12.2 (10-20); Bilirubin,Total 0.6 mg/dl (0.2-1.0); Calcium 8.8 mg/dl (8.6-10.3); Creatinine Clr Calc Pharmacy 82.7 ml/min; Est GFR (African American) 60.8 ml/min; Est GFR (Non-African American) 52.5 ml/min; Globulin 2.8 gm/dl (2.5-4.0); Potassium 3.9 mmol/L (3.5-5.1)
--- NOTE | 2023-05-10 18:20 | XRay Report ---
KUB HISTORY: left side ureteral stone on CT 3 days ago COMPARISON: Abdomen and pelvis CT 05/07/2023. FINDINGS: The bowel gas pattern is unremarkable. There are no dilated loops of small bowel to suggest an obstruction. No change in position of the 7 mm stone within the proximal left ureter. This is ad jacent to the left L4 transverse process. No additional renal calculi identified. Calcifications in t he deep pelvis are consistent with phleboliths. No pneumoperitoneum or pneumatosis. IMPRESSION: No change in position of the 7 mm proximal left ureteral stone. ACT 112: Negative or not required by law. Electronically signed by: Tanner Jones M.D. 05/10/2023 6:19 PM
[2023-05-10] MEDS: SODIUM CHLORIDE 0.9% 1,000 ML IV ONE (19:31)
[2023-05-10] MEDS: KETOROLAC TROMETHAMINE 15 MG/ML VIAL IV STA (19:32)
--- NOTE | 2023-05-10 20:09 | History & Physical Report ---
Date of Service May 10, 2023 Assessment & Plan (1) Renal colic on left side: Plan: -Admit to med/surge -Currently stable and afebrile -Presented to the ED on 05/10 with uncontrolled left flank due to recently diagnosed 5-7 mm left ureteral stone -No leukocytosis, UA is clean, mildly dehydrated per current Cr but not technically an FRANCISCO at this time -Patient had improvement in symptoms after initial dose of toradol in the ED -Will need to be careful with additional narcotics with his hx of Opioid use disorder and current Suboxone use -Will give his HS dose of Suboxone now -Start q6h tylenol and PRN toradol for now -S/P 1L NSS in the ED, will given 1L LR bolus on admission then start maintenance LR -Urine strainer ordered -Continue flomax -Urology consult placed -Regular diet until midnight then NPO in case of OR with Urology -AM CBC and BMP (2) Opioid use disorder: Plan: -Patient currently takes 1/2 Suboxone SL in the am and 1/2 in the PM -Will give HS dose now -Monitor closely for oversedation/respiratory depression if needing to give additional narcotics Plan The patient was discussed with Dr. Magana at the time of the exam History of Present Illness Chief Complaint: Uncontrolled kidney stone pain Primary Care Provider: NO PCP Remington is a 47 year old male with a PMH significant for Opioid use disorder on Suboxone and recently diagnosed left proximal ureteral stone on 05/07/23 who presented to the [facility] ED on 05/10/23 due to uncontrolled pain. Per the ED intake, the patient called the Urology office and was instructed to come to the ED as they did not have available appointments. The patient was seen in the ED on 05/07 and was diagnosed with an approximately 5-7 mm left proximal ureteral stone. Labs were stable and the patient was discharged on flomax. Today the patient was noted to be hypertensive on arrival at 199/109 but otherwise stable. Labs were significant for a cr of 1.59 (baseline is near 1.1). The patient was given 15 mg IV toradol and 1L NSS without improvement in his symptoms. We were asked to admit the patient for uncontrolled pain and Urology evaluation tomorrow. At the time of the exam the patient was sitting in bed in no acute distress. He states that his left flank pain has been uncontrolled since 05/07. He has been using flomax as prescribed and has been using tylenol and aleve at home. He take s 1/2 of his SL Suboxone in the am and 1/2 in the PM, he has not had his HS dose yet. This is his second kidney stone in the past 6 months. Please refer to Dr. Magana's attestation for any changes to the treatment plan Allergies Allergy/AdvReac Type Severity Reaction Status Date / Time No Known Allergies Allergy Unknown Verified 05/10/23 19:41 Home Medications Medication Instructions Recorded Confirmed Type buprenorphine 8 mg-naloxone 2 mg 1 film sublingual DAILY 08/05/22 05/10/23 History sublingual film cholecalciferol (vitamin D3) 25 1,000 unit PO DAILY #30 tabs 05/11/23 Rx mcg (1,000 unit) chewable tablet (Vitamin D3) ketorolac 10 mg tablet 10 mg PO Q8H PRN pain #10 tabs 05/11/23 Rx oxybutynin chloride 5 mg tablet 5 mg PO BID PRN bladder or 05/11/23 Rx ureteral spasms #14 tabs phenazopyridine 100 mg tablet 100 mg PO Q8H PRN bladder spasms 05/11/23 Rx (Pyridium) #14 tabs tamsulosin 0.4 mg capsule (Flomax) 0.4 mg PO DAILY #30 caps 05/11/23 Rx Past Med/Surg History Medical History History of hypertension resolved with wt loss Kidney stones Surgical History History of wisdom tooth extraction S/P ureteral stent placement History of cystoscopy Social History Smoking Status: Never smoker Tobacco Type: Cigarettes Second Hand Exposure: No; Do You Dip or Chew Tobacco: Yes (1 can per day); Hx Alcohol Use: No Hx Substance Use: No Preferred Language: Setswana Communication Ability: Effective Bench Technician Required: No Beliefs That Will Affect Care: None Current Living Situation: Alone Other Information That Helps Us Care for You: No Feels Safe at Home: Yes Safety Concerns: Feels Safe At This Time Assistive Devices: None Physical Exam Physical Exam: Physical Exam: General: In no acute distress, stated age, well-nourished, good hygiene HEENT: Normocephalic, atraumatic, no scleral icterus, pupils around round, symmetrical, and reactive to light, dry mucus membranes, trachea midline, no thyromegaly Chest/Pulm: No respiratory distress, symmetrical chest expansion, clear breath sounds throughout Cardiac: RRR, no murmurs noted Abdomen: Negative for ascites and bruising, normoactive bowel sounds, soft, mild tender to palpation in the left lateral abdomen : Negative CVA tenderness BL Musculoskeletal: Symmetrical and without signs of acute trauma, upper and lower extremities with full ROM, no atrophy, spasticity, or flaccidity Extremities: Radial, dorsalis pedis, and posterior tibial pulses are intact and symmetrical, no edema noted in the BL LE's Skin: Warm, dry, no rashes , lesions, or scars noted Neuro: Alert and oriented to person, place, month, year, and president, no focal defects, no tremors noted Psych: No acute distress, calm and cooperative during the exam Results & Data Results & Data Vital Signs (Past 12 Hours) Vital Signs Temp Pulse Pulse Resp BP BP Pulse Ox 05/10/23 19:34 63 18 170/76 H 98 05/10/23 16:18 36.5 C 97 H 20 199/109 H 97 O2 Del Method 05/10/23 19:34 Room Air 05/10/23 16:18 Room Air Laboratory Results Abnormal lab results 05/10/23 Range/Units 16:55 RBC 4.26 L (4.70-6.10) M/uL Hgb 12.9 L (14.0-18.0) g/dl Hct 37.9 L (42.0-52.0) % Bulloch # (Auto) 0.91 H (0.11-0.59) K/uL Creatinine 1.56 H (0.6-1.4) mg/dl Diagnostic Findings KUB X-Ray 05/10/23 16:19 KUB HISTORY: left side ureteral stone on CT 3 days ago COMPARISON: Abdomen and pelvis CT 05/07/2023. FINDINGS: The bowel gas pattern is unremarkable. There are no dilated loops of small bowel to suggest an obstruction. No change in position of the 7 mm stone within the proximal left ureter. This is adjacent to the left L4 transverse process. No additional renal calculi identified. Calcifications in the deep pe lvis are consistent with phleboliths. No pneumoperitoneum or pneumatosis. IMPRESSION: No change in position of the 7 mm proximal left ureteral stone. ACT 112: Negative or not required by law. Electronically signed by: Tanner Jones M.D. 05/10/2023 6:19 PM Code Status & VTE Plan Code Status Full code VTE Prophylaxis Plan VTE Prophylaxis will be ordered: Yes Supervising Physician Co-Signing Physician Notes Attending addendum: I have physically seen this patient, have supervised the RICKEY's activities, and agree with the H&P unless as otherwise noted. Assessment and Plan: 7 mm proximal left ureteral stone- N.p.o. after midnight Follow urine culture and sensitivity Ceftriaxone 2 g IV daily Acetaminophen 650 mg p.o. every 6 hours as needed mild pain or fever Toradol 30 mg IV every 6 hours as needed moderate pain Received 1 L normal saline from the ED, will be given 1 L LR bolus followed by maintenance at 80 mL/h Continue tamsulosin Consult to urology Opiate use disorder- Continue Suboxone as outpatient Remaining orders and notations as noted PG Care Time/CCT Total # of Minutes Spent Total Time Spent with Patient: Total time spent is greater than 50% in coordination of care (as documented) at patient's floor/unit and/or counseling patient: C[place] [address] INT INP/OBS CARE 3/75MIN Patient Type Established Medical Decision Making High Complexity Diagnoses Renal colic on left side N23 Opioid use disorder F11.90
[2023-05-10] MEDS ORDERED: MoRPHine SULFATE 2 MG/ML CARP IV PRN (20:36)
[2023-05-10] MEDS: BUPRENORPHINE/NALOXONE 8/2 MG TAB SL STA (21:28)
[2023-05-10] MEDS: TAMSULOSIN HCL 0.4 MG CAP PO ONE (21:28)
[2023-05-10] MEDS: LACTATED RINGER'S 1,000 ML IV ONE (21:29)
[2023-05-10] MEDS: ACETAMINOPHEN 325 MG TAB PO SCH (22:05)
[2023-05-10] MEDS ORDERED: ACETAMINOPHEN 325 MG TAB PO PRN (22:22)
[2023-05-10] MEDS: LACTATED RINGER'S 1,000 ML IV SCH (23:13)
--- NOTE | 2023-05-11 00:18 | Emergency Department Note ---
History of Present Illness General Chief Complaint: Kidney Stone Stated Complaint: KIDNEY STONE Time Seen by Provider: 05/10/23 18:55 History of Present Illness Provider Complaint: flank pain (L) Onset (ago): 5 day(s) Pain Consistency: constant Location: L flank Severity: moderate Maximum Pain Intensity: 7 Current Pain Intensity: 7 Quality: + stabbing and + sharp Relieved By: + nothing Exacerbated By: + nothing Context: + history of similar episodes (Kidney stones); no foreign travel, no possible food poisoning, no sick contacts, no recent antibiotic use, no recent surgery/procedure or no recent injury Associated Symptoms: + nausea; no vomiting, no diarrhea, no fever, no chills, no constipation, no dysuria, no hematemesis, no melena, no hematuria, no syncope, no headache, no chest pain and no breathing difficulty Home Medications Medication Instructions Recorded Confirmed Type buprenorphine 8 mg-naloxone 2 mg 1 film sublingual DAILY 08/05/22 05/10/23 History sublingual film tamsulosin 0.4 mg capsule (Flomax) 0.4 mg PO DAILY #14 caps 05/07/23 05/10/23 Rx Allergies Allergy/AdvReac Type Severity Reaction Status Date / Time No Known Allergies Allergy Unknown Verified 05/10/23 19:41 Past Med/Surg History Medical History History of hypertension resolved with wt loss Kidney stones Surgical History History of wisdom tooth extraction S/P ureteral stent placement History of cystoscopy Social History Smoking Status: Never smoker Tobacco Type: Cigarettes Second Hand Exposure: No; Do You Dip or Chew Tobacco: Yes (1 can per day); Hx Alcohol Use: No Hx Substance Use: No Preferred Language: Bengali Communication Ability: Effective Electronics Repair Technician Required: No Beliefs That Will Affect Care: None Current Living Situation: Alone Other Information That Helps Us Care for You: No Feels Safe at Home: Yes Safety Concerns: Feels Safe At This Time Assistive Devices: None Physical Exam 2 Vital Signs: Vital Signs - 24 hr 05/10/23 16:18 05/10/23 19:34 Temperature 36.5 C Temperature Source Temporal Artery Sc an Pulse Rate 97 H Pulse Rate [Right] 63 Pulse Rhythm Regular Pulse Strength Normal Respiratory Rate 20 18 Respiratory Effort / Characteristics Non-Labored Sponta neous Respiratory Depth Normal Normal Blood Pressure 199/109 H Blood Pressure [Ri ght Arm] 170/76 H Blood Pressure Nupur n 139 Blood Pressure Nupur n [Right Arm] 107 Blood Pressure Pos ition Sitting Pulse Oximetry 97 98 Oxygen Delivery Me thod Room Air Room Air Sepsis Recent Feve r Within 48 Hours No Sepsis New/Unexpla ined Change in Men stephanie Status N/A Sepsis Action Take n by Nursing No Action Required Physical Exam: Physical Exam GENERAL: She is oriented to person, place, and time. She appears well-developed and well-nourished. She does not appear distressed. HENT: Exam performed. -Head: Normocephalic and atraumatic. -Right Ear: External ear normal. No mastoid erythema -Left Ear: External ear normal. No mastoid erythema -Mouth/Throat: The oropharynx is clear and moist. No trismus in the jaw. No dental abscesses or uvula swelling. No oropharyngeal exudate or tonsillar abscesses. EYES: Conjunctivae and EOM are normal.Right eye exhibits no discharge. Left eye exhibits no discharge. No scleral icterus. NECK: Normal range of motion. Neck supple. No JVD present. No tracheal deviation and normal range of motion present. CV: Normal rate, regular rhythm, normal heart sounds and intact distal pulses. There is no peripheral edema. Palpable radial pulses bue. PULM/CHEST: Effort normal and breath sounds normal. No respiratory distress. No stridor. She has no wheezes. She has no rales. -Chest Wall: She exhibits no tenderness. ABD: The abdomen is soft. Bowel sounds are normal. She has no distension. No mass is present. There is no tenderness. There is no rebound, no guarding, no Santiago's sign and no tenderness at McBurney's point. Rovsig negative. Left- sided CVA tenderness MUSC/SKEL: Normal range of motion. There is no peripheral edema, tenderness or deformity. NEURO: Motor and sensation grossly intact. SKIN: Skin is warm and dry. She is not diaphoretic. PSYCH: She has a normal mood and affect. Behavior is normal. Judgment and thought content normal. Course Course 1854: The patient was evaluated in room D1. A complete history and physical exam was performed Administered Medications Acetaminophen (Acetaminophen 325 Mg Tab) 650 mg PO Q6H LISA Stop: 06/09/23 20:59 Last Admin: 05/10/23 22:05 Dose: 650 mg Documented By: Lactated Ringer's (Lr) 1,000 mls @ 100 mls/hr IV .Q10H LISA Stop: 05/11/23 08:59 Last Admin: 05/10/23 23:13 Dose: 100 mls/hr Documented By: REA Discontinued Medications Buprenorphine/Naloxone (Buprenorphine/Naloxone 8/2 Mg Tab) 0.5 tab SL NOW STA Stop: 05/10/23 20:47 Last Admin: 05/10/23 21:28 Dose: 0.5 tab Documented By: Sodium Chloride (Nss) 1,000 mls @ 999 mls/hr IV .Q1H1M ONE Stop: 05/10/23 20:18 Last Infusion: 05/10/23 21:28 Dose: Infused Documented By: Admin: 05/10/23 19:31 Dose: 999 mls/hr Documented By: Lactated Ringer's (Lr) 1,000 mls @ 999 mls/hr IV .Q1H1M ONE Stop: 05/10/23 21:38 Last Infusion: 05/10/23 23:15 Dose: Infused Documented By: Admin: 05/10/23 21:29 Dose: 999 mls/hr Documented By: Ketorolac Tromethamine (Ketorolac Tromethamine 15 Mg/Ml Vial) 15 mg IV NOW STA Stop: 05/10/23 19:19 Last Admin: 05/10/23 19:32 Dose: 15 mg Documented By: Tamsulosin HCl (Tamsulosin Hcl 0.4 Mg Cap) 0.4 mg PO NOW ONE Stop: 05/10/23 20:51 Last Admin: 05/10/23 21:28 Dose: 0.4 mg Documented By: Medical Decision Making Medical Records Attestation: I reviewed the patient's medical records. External medical records reviewed. This is the patient's second visit to the emergency department in the last 5 days. He was seen on 05/07/[address] imaging done which showed a a left-sided kidney stone measuring 5 mm with fullness of the left renal collecting straight system and perinephric stranding. Laboratory Data Attestation: I reviewed the patient's lab results. 05/10/23 16:55 05/10/23 16:55 Lab Results 05/10/23 05/10/23 Range/Units 16:25 16:55 WBC 8.98 (4.8-10.8) K/ul RBC 4.26 L (4.70-6.10) M/uL Hgb 12.9 L (14.0-18.0) g/dl Hct 37.9 L (42.0-52.0) % MCV 89.0 (80.0-100.0) fL MCH 30.3 (25.0-34.0) pg MCHC 34.0 (32.0-36.0) g/dL RDW Std Deviation 41.7 (36.4-46.3) fL RDW Coeff of Radha 12.8 (11.5-14.5) % Plt Count 264 (130-400) K/uL MPV 10.1 (9.4-12.4) fL Immature Gran % (Auto) 0.2 % Neut % (Auto) 67.4 % Lymph % (Auto) 18.9 % [place] % (Auto) 10.1 % Eos % (Auto) 3.1 % Baso % (Auto) 0.3 % Neut # (Auto) 6.04 (1.40-6.50) K/uL Lymph # (Auto) 1.70 (1.20-3.40) K/uL [place] # (Auto) 0.91 H (0.11-0.59) K/uL Eos # (Auto) 0.28 (0.00-0.50) K/uL Baso # (Auto) 0.03 (0.00-0.20) K/uL Immature Gran # (Auto) 0.02 (0.01-0.20) K/uL Sodium 136 (136-145) mmol/L Potassium 3.9 (3.5-5.1) mmol/L Chloride 103 (98-107) mmol/L Carbon Dioxide 28 (21-32) mmol/L Anion Gap 5 (3-11) BUN 19 (6-23) mg/dl Creatinine 1.56 H (0.6-1.4) mg/dl Est Cr Clr Drug Dosing 82.7 ml/min Est GFR ( Amer) 60.8 ml/min Est GFR (Non-Af Amer) 52.5 ml/min BUN/Creatinine Ratio 12.2 (10-20) Glucose 89 (70-99(Fasting)) mg/dl Calcium 8.8 (8.6-10.3) mg/dl Total Bilirubin 0.6 (0.2-1.0) mg/dl AST 17 (13-39) U/L ALT 24 (7-52) U/L Alkaline Phosphatase 72 (34-104) U/L Total Protein 7.0 (6.0-8.3) gm/dl Albumin 4.2 (3.4-5.0) gm/dl Globulin 2.8 (2.5-4.0) gm/dl Albumin/Globulin Ratio 1.5 (0.9-2) Urine Color Yellow Urine Appearance Clear (Clear) Urine pH 5.0 (4.5-7.5) Ur Specific [place] 1.017 (1.000-1.030) Urine Protein Negative (Negative) Urine Glucose (UA) Negative (Negative) Urine Ketones Negative (Negative) Urine Blood Negative (Negative) Urine Nitrite Negative (Negative) Urine Bilirubin Negative (Negative) Urine Urobilinogen Negative (Negative) Ur Leukocyte Esterase Negative (Negative) Imaging Data Radiologist's Impression: KUB X-Ray 05/10/23 16:19 KUB HISTORY: left side ureteral stone on CT 3 days ago COMPARISON: Abdomen and pelvis CT 05/07/2023. FINDINGS: The bowel gas pattern is unremarkable. There are no dilated loops of small bowel to suggest an obstruction. No change in position of the 7 mm stone within the proximal left ureter. This is adjacent to the left L4 transverse process. No additional renal calculi identified. Calcifications in the deep pelvis are consistent with phleboliths. No pneumoperitoneum or pneumatosis. IMPRESSION: No change in position of the 7 mm proximal left ureteral stone. ACT 112: Negative or not required by law. Electronically signed by: Tanner Jones M.D. 05/10/2023 6:19 PM [facility] Narrative Patient was seen during a time of extreme volume and extreme acuity. Nursing triage protocols were initiated labs and imaging was conducted by protocol in the triage area. Cardiac monitoring: An order was placed for continuous cardiac monitoring. The monitor shows a rate of 80 with sinus rhythm interpreted by me Vital signs stable. Labs and imaging within normal limits with exception of mild creatinine elevation of 1.56. Patient reports his pain is too intense and the patient will be admitted for renal colic and be evaluated by urology discussed the case with Luis Jo NP for [facility] who will admit the patient. Impression & Plan Renal colic on left side, Left ureteral calculus Discharge Plan Visit Data Chief Complaint: Kidney Stone Stated Complaint: KIDNEY STONE ED Provider: Fernando Caceres Discharge Problem: Renal colic on left side, Left ureteral calculus Patient Disposition: Admitted As Inpatient Discharge Instructions Interventions: ED Discharge Assessment Last Done: 05/10/23 22:03
[2023-05-11] MEDS: PROMETHAZINE HCL 12.5 MG in SODIUM CHLORIDE 0.9% 50 ML IV STA (04:39)
[2023-05-11] MEDS: KETOROLAC TROMETHAMINE 15 MG/ML VIAL IV PRN (05:13)
[2023-05-11] MEDS: TAMSULOSIN HCL 0.4 MG CAP PO SCH (07:56)
--- NOTE | 2023-05-11 08:04 | Hospitalist Progress Note ---
Date of Service May 11, 2023 Assessment & Plan (1) Renal colic on left side: Plan: Presented to the ED on 05/10 with uncontrolled left flank due to recently diagnosed 5-7 mm left ureteral stone . Had stone about 6 months ago as well, does endorse tea consumption No leukocytosis, UA does not appear infected BUN/Cr to 19/1.56 w/ baseline Cr~1-1.1 1L IVF w/ NSS in ER, additional 1L LR bolus on admission Urology consulted Remains on flomax (reported had been continuous on this at home) BUN/Cr 17/1.4 on repeat, remains on maintenance IVF however appears had only been ordered x 1L total --> placed additional order for continuous NSS @ 100cc/hr while waiting for OR Did NOT pass stone overnight Continues NPO Urology on consult, planning for cysto/stent this morning. Did message about concerns w/ his upcoming cruise given prior pain from stent however did discuss w/ patient about medications like pyridium/ditropan for spasm/pain and have been ordered prn after cysto/stent placement w/ Urology Covering w/ ancef IV w/ cysto Pain control/antiemetics as needed --> cautious use additional narcotics w/ hx opioid use disorder/current Suboxone use -- continue suboxone SL BID - cautious use w/ toradol given elevated Cr however suspected 2nd to stone Will check Vitamin D given repeat episode of stone this year. Ca was 10.2/borderline on 05/07 not on any supplementation at baseline Counselled to decrease tea consumption Monitor labs on repeat (2) Opioid use disorder: Plan: Patient currently takes 1/2 Suboxone SL in the am and 1/2 in the PM Will give HS dose now Monitor closely for oversedation/respiratory depression if needing to give additional narcotics Plan NPO for cysto/stent placement today Possible dc this evening vs monitoring overnight. Pyridium/Ditropan for spasm pain to hopefully allow him to be comfortable/continue w/ his plans for Cruise this upcoming Sunday. Updated urology given patient concerns, they were to discuss prior to placement however is safer to go on cruise WITH stent in place to prevent issues as discussed w/ Urology and hopefully will be able to manage his stent pain w/ PO medications. Admission and Anticipated Discharge Date Admission Date: May 10, 2023 Supervising Physician Co-Signing Physician Notes The patient was not seen by me. The chart was reviewed. Case discussed with JOCELYN Jalloh. Agree with assessment and plan Subjective Eval this morning, resting in bed. Seen by urology and planning for cysto/stent today. He notes he had been taking the flomax. Has not passed stone overnight. Cr elevated but not worse at 1.4 at present time. Prior hx stone in past 6 months. No excessive Mt dew intake but does drink ice tea -- encouraged to limit. No reported family hx recurrent stone formation. His pain is on the LEFT side/flank/lower abdomen. Reports controlled at present time with medications, worse w/ movement. He notes he has cruise upcoming this week but had terrible time with his prior stent with pain from stent. He denies ever having ditropan or pyridium but will monitor. Discussed urine/orange w/ pyridium if needed. Possible dc this evening if significant improvement in pain/tolerating diet but otherwise will monitor overnight. Questions/concerns addressed at this time. Physical Exam Physical Exam: General: WD/WN obese male resting in bed, mildly uncomfortable appearing w/ movement but NAD at rest Head atraumatic, normocephalic, thick neck, mmm, trachea midline Resp: even/unlabored, slightly diminished in the bases, no w/c/r, on room air CV: RRR, no significant m/r/g, no pitting edema GI: abdomen is soft ,+BS, slight tenderness R flank however no overt tenderness on palpation, no guarding/rigidity : no CVA tenderness, no ferguson MSK/Neuro: nonfocal Psych: AOx3, cooperative with exam but frustrated as has upcoming cruise and prior pain w/ stent Results & Data Results & Data Vital Signs (Past 12 Hours) Vital Signs Temp Pulse Resp BP Pulse Ox O2 Del Method 05/11/23 07:11 36.4 C L 71 14 144/87 H 95 Room Air 05/10/23 22:22 36.4 C L 86 18 168/99 H 96 Room Air Laboratory Results 05/11/23 05/10/23 05/10/23 Range/Units 07:28 16:55 16:25 WBC 6.25 8.98 (4.8-10.8) K/ul RBC 4.18 L 4.26 L (4.70-6.10) M/uL Hgb 12.6 L 12.9 L (14.0-18.0) g/dl Hct 37.2 L 37.9 L (42.0-52.0) % MCV 89.0 89.0 (80.0-100.0) fL MCH 30.1 30.3 (25.0-34.0) pg MCHC 33.9 34.0 (32.0-36.0) g/dL RDW Std Deviation 42.4 41.7 (36.4-46.3) fL RDW Coeff of Radha 13.0 12.8 (11.5-14.5) % Plt Count 241 264 (130-400) K/uL MPV 10.7 10.1 (9.4-12.4) fL Immature Gran % (Auto) 0.3 0.2 % Neut % (Auto) 51.5 67.4 % Lymph % (Auto) 33.9 18.9 % [place] % (Auto) 8.5 10.1 % Eos % (Auto) 5.3 3.1 % Baso % (Auto) 0.5 0.3 % Neut # (Auto) 3.22 6.04 (1.40-6.50) K/uL Lymph # (Auto) 2.12 1.70 (1.20-3.40) K/uL [place] # (Auto) 0.53 0.91 H (0.11-0.59) K/uL Eos # (Auto) 0.33 0.28 (0.00-0.50) K/uL Baso # (Auto) 0.03 0.03 (0.00-0.20) K/uL Immature Gran # (Auto) 0.02 0.02 (0.01-0.20) K/uL Sodium 138 136 (136-145) mmol/L Potassium 4.3 3.9 (3.5-5.1) mmol/L Chloride 106 103 (98-107) mmol/L Carbon Dioxide 26 28 (21-32) mmol/L Anion Gap 6 5 (3-11) BUN 17 19 (6-23) mg/dl Creatinine 1.40 1.56 H (0.6-1.4) mg/dl Est Cr Clr Drug Dosing 93.7 82.7 ml/min Est GFR ( Amer) 69.3 60.8 ml/min Est GFR (Non-Af Amer) 59.8 52.5 ml/min BUN/Creatinine Ratio 12.1 12.2 (10-20) Glucose 85 89 (70-99(Fasting)) mg/dl Calcium 8.4 L 8.8 (8.6-10.3) mg/dl Total Bilirubin 0.6 (0.2-1.0) mg/dl AST 17 (13-39) U/L ALT 24 (7-52) U/L Alkaline Phosphatase 72 (34-104) U/L Total Protein 7.0 (6.0-8.3) gm/dl Albumin 4.2 (3.4-5.0) gm/dl Globulin 2.8 (2.5-4.0) gm/dl Albumin/Globulin Ratio 1.5 (0.9-2) 25-OH Vitamin D Total 20.2 L (30-100) ng/ml Urine Color Yellow Urine Appearance Clear (Clear) Urine pH 5.0 (4.5-7.5) Ur Specific [place] 1.017 (1.000-1.030) Urine Protein Negative (Negative) Urine Glucose (UA) Negative (Negative) Urine Ketones Negative (Negative) Urine Blood Negative (Negative) Urine Nitrite Negative (Negative) Urine Bilirubin Negative (Negative) Urine Urobilinogen Negative (Negative) Ur Leukocyte Esterase Negative (Negative) Diagnostic Findings KUB X-Ray 05/10/23 16:19 KUB HISTORY: left side ureteral stone on CT 3 days ago COMPARISON: Abdomen and pelvis CT 05/07/2023. FINDINGS: The bowel gas pattern is unremarkable. There are no dilated loops of small bowel to suggest an obstruction. No change in position of the 7 mm stone within the proximal left ureter. This is adjacent to the left L4 transverse process. No additional renal calculi identified. Calcifications in the deep pelvis are consistent with phleboliths. No pneumoperitoneum or pneumatosis. IMPRESSION: No change in position of the 7 mm proximal left ureteral stone. ACT 112: Negative or not required by law. Electronically signed by: Tanner Jones M.D. 05/10/2023 6:19 PM PG Care Time/CCT Total # of Minutes Spent Total Time Spent with Patient: Total time spent is greater than 50% in coordination of care (as documented) at patient's floor/unit and/or counseling patient: Coding Level of Care Code 87614 SUB INP/OBS CARE MIN Diagnoses Renal colic on left side N23 Opioid use disorder F11.90
[2023-05-11 08:14] LABS: BUN Creatinine Ratio 12.1 (10-20); Calcium 8.4 mg/dl (8.6-10.3); Creatinine Clr Calc Pharmacy 93.7 ml/min; Est GFR (African American) 69.3 ml/min; Est GFR (Non-African American) 59.8 ml/min; Potassium 4.3 mmol/L (3.5-5.1)
[2023-05-11] MEDS: BUPRENORPHINE/NALOXONE 2/0.5MG 1 TAB SL SCH (08:20)
[2023-05-11 08:58] LABS: Hematocrit (blood only) 37.2 % (42.0-52.0); Hemoglobin 12.6 g/dl (14.0-18.0); Mean Corpuscular Hemoglobin 30.1 pg (25.0-34.0); Mean Corpuscular Hgb Conc 33.9 g/dL (32.0-36.0); Mean Platelet Volume 10.7 fL (9.4-12.4); Platelet Count 241 K/uL (130-400); RDW Standard Deviation 42.4 fL (36.4-46.3); Red Blood Count 4.18 M/uL (4.70-6.10); White Blood Count 6.25 K/ul (4.8-10.8)
[2023-05-11 08:59] LABS: Basophils # (auto) 0.03 K/uL (0.00-0.20); Basophils % (auto) 0.5 %; Eosinophils # (auto) 0.33 K/uL (0.00-0.50); Eosinophils % (auto) 5.3 %; Immature Granulocytes # (auto) 0.02 K/uL (0.01-0.20); Immature Granulocytes % (auto) 0.3 %; Lymphocytes # (auto) 2.12 K/uL (1.20-3.40); Lymphocytes % (auto) 33.9 %; Monocytes # (auto) 0.53 K/uL (0.11-0.59); Monocytes % (auto) 8.5 %; Neutrophils # (auto) 3.22 K/uL (1.40-6.50); Neutrophils % (auto) 51.5 %
--- NOTE | 2023-05-11 09:06 | Urology Consultation ---
Date of Consultation May 11, 2023 Assessment & Plan (1) Left ureteral calculus: (2) Renal colic on left side: Plan 47yo M admitted with intractable left flank pain secondary to an obstructing proximal left ureteral stone Afebrile, hemodynamically stable Labs reviewed - WBC 6.25, Creatinine 1.40. Urinalysis not suggestive of infection. Denies stone passage overnight. Continues to be symptomatic with episodes of pain. Discussed options for acute stone management including surgical intervention while inpatient in the form of left ureteral stent placement today. Discussed outpatient options including trial of passage vs ESWL. Risks and benefits of each were discussed. Stone passage rates given size and location were reviewed. Ureteral stents were discussed as well as post-operative issues and pain management. We discussed need for stone treatment at a later date. He verbalizes good understanding. Patient wishes to proceed with surgical intervention today. Plan for cystoscopy, left retrograde pyelogram and left ureteral stent placement today. Risks and benefits of procedure to be reviewed with patient by Dr. Ferrell. OR notified. Expected clinical course reviewed, all questions answered. Will cover with IV Ancef preoperatively. Keep NPO for procedure. Urology will follow. Supervising Physician Co-Signing Physician Notes Discussed patient with RICKEY. Agree with plan. To OR for left stent placement History of Present Illness Attending Physician: Je Wei MD History of Present Illness 47 year old male with a PMHx significant for Opioid use disorder on Suboxone and who was initially seen at [facility] ED 05/07/23 and diagnosed with a left proximal ureteral stone. He returned to the ED on 05/10/23 due to uncontrolled pain. On arrival he was hypertensive but otherwise stable. Labs showing a creatinine of 1.59 and no leukocytosis. Urinalysis not suggestive of infection. He was given IV Toradol and IV fluids and admitted to medicine service for pain management. CT abdomen pelvis 05/07/2023 reviewedobstructing 5 mm left proximal ureteral stone with mild fullness of the left renal collecting system and perinephric stranding. No remaining renal stones noted. KUB 05/10/2023 reviewedno change in position of the 7 mm proximal left ureteral stone. Patient examined at bedside this AM. Awake, resting in bed on arrival. No acute distress. Has been NPO. Denies any noticeable stone passage. Still with left-sided pain/pressure. Denies fever, chills, nausea, vomiting. Denies hematuria or dysuria. Patient states he is leaving for a cruise on Sunday. He has a history of stones with prior ureteroscopy in August 2022. Reports poorly tolerating stents in the past. Allergies Allergy/AdvReac Type Severity Reaction Status Date / Time No Known Allergies Allergy Unknown Verified 05/10/23 19:41 Home Medications Medication Instructions Recorded Confirmed Type buprenorphine 8 mg-naloxone 2 mg 1 film sublingual DAILY 08/05/22 05/10/23 History sublingual film tamsulosin 0.4 mg capsule (Flomax) 0.4 mg PO DAILY #14 caps 05/07/23 05/10/23 Rx Patient History Medical History History of hypertension resolved with wt loss Kidney stones Surgical History History of wisdom tooth extraction S/P ureteral stent placement History of cystoscopy Social History Smoking Status: Never smoker Tobacco Type: Cigarettes Second Hand Exposure: No; Do You Dip or Chew Tobacco: Yes (1 can per day); Hx Alcohol Use: No Hx Substance Use: No Preferred Language: Setswana Communication Ability: Effective Press Tender Incendiary Grenade Required: No Beliefs That Will Affect Care: None Current Living Situation: Alone Other Information That Helps Us Care for You: No Feels Safe at Home: Yes Safety Concerns: Feels Safe At This Time Assistive Devices: None Review of Systems Review of Systems: All systems reviewed & are unremarkable except as noted in HPI & below Physical Exam Constitutional: no acute distress Eyes: PERRL, conjunctivae normal, anicteric sclerae ENMT: external ear and nose normal, oropharynx normal Neck: normal visual inspection Respiratory: no respiratory distress and no labored breathing Musculoskeletal: Head/Neck/Chest: normocephalic Skin: No visible rashes or lesions to exposed skin areas Neurologic: moves all extremities and awake Psychiatric: A+Ox3, euthymic affect Results & Data Vital Signs (Past 12 Hours) Vital Signs Temp Pulse Resp BP Pulse Ox O2 Del Method 05/11/23 07:11 36.4 C L 71 14 144/87 H 95 Room Air 05/10/23 22:22 36.4 C L 86 18 168/99 H 96 Room Air PG Care Time/CCT Total # of Minutes Spent Total Time Spent with Patient: Total time spent is greater than 50% in coordination of care (as documented) at patient's floor/unit and/or counseling patient: Coding Level of Care Code 39917 IN/OBS CONSULT LVL 4,60M Diagnoses Left ureteral calculus N20.1 Renal colic on left side N23
[2023-05-11] MEDS ORDERED: oxyBUTYnin chloride 5 MG TAB PO PRN (09:25)
[2023-05-11] MEDS ORDERED: PHENAZOPYRIDINE HCL 100 MG TAB PO PRN (09:25)
[2023-05-11] MEDS: SODIUM CHLORIDE 0.9% 1,000 ML IV SCH (12:11)
[2023-05-11] MEDS ORDERED: MIDAZOLAM HCL 1 MG/ML 2ML VIAL ONE (12:49)
[2023-05-11] MEDS ORDERED: ONDANSETRON INJ 2 MG/ML 2 ML VIAL ONE (12:49)
[2023-05-11] MEDS ORDERED: PROPOFOL IV EMULSION 10 MG/ML 20 ML VIAL IV ONE ×2 (12:49→15:13)
[2023-05-11] MEDS ORDERED: LIDOCAINE 2% 2 ML VIAL/AMP(20MG/ML) INFIL ONE (12:49)
[2023-05-11] MEDS ORDERED: fentaNYL citrate PF 100 MCG/2 ML VIAL ONE (12:49)
--- NOTE | 2023-05-11 13:33 | Anesthesiology Consultation ---
Date of Service May 11, 2023 Assessment & Plan Chart Review Chart Review: Patient NOT seen in Pre Admission Testing Consults Requested none History Surgery Operation Date: 05/11/23 09:45 Proposed Procedures p Cystoscopy, Left Retrograde Pyelogram, Left Stent Placement - Preston Ferrell MD Height/Weight Height: 5 ft 11 in Weight: 138.2 kg Allergies Allergy/AdvReac Type Severity Reaction Status Date / Time No Known Allergies Allergy Unknown Verified 05/10/23 19:41 Medications Home Medications Medication Instructions Recorded Confirmed Last Taken buprenorphine 8 mg-naloxone 2 mg 1 film sublingual DAILY 08/05/22 05/10/23 08/23/22 05:00 sublingual film tamsulosin 0.4 mg capsule (Flomax) 0.4 mg PO DAILY #14 caps 05/07/23 05/10/23 Unknown Active Medications Generic Name Dose Route Start Last Admin Trade Name Freq PRN Reason Stop Dose Admin Acetaminophen 650 mg 05/10/23 21:00 05/11/23 08:20 Acetaminophen 325 Mg Tab PO 06/09/23 20:59 650 mg Q6H LISA Administration Buprenorphine/Naloxone 2 tab 05/11/23 09:00 05/11/23 08:20 Buprenorphine/Naloxone 2/0.5mg 1 Tab SL 06/10/23 08:59 2 tab BID LISA Administration Sodium Chloride 1,000 mls @ 100 mls/hr 05/11/23 12:15 05/11/23 13:07 Nss IV 06/10/23 12:14 0 mls/hr .Q10H LISA Infusion Ketorolac Tromethamine 10 mg 05/10/23 22:00 05/11/23 05:13 Ketorolac Tromethamine 15 Mg/Ml Vial IV 05/15/23 21:59 10 mg Q4H PRN Administration pain(5+) Tamsulosin HCl 0.4 mg 05/11/23 09:00 05/11/23 07:56 Tamsulosin Hcl 0.4 Mg Cap PO 06/10/23 08:59 0.4 mg DAILY LISA Administration NPO Date Last Intake of Fluids: 05/11/23 Time Last Intake of Fluids: 08:00 Last Intake of Fluids Comment: sip with meds Date Last Intake of Solids: 05/10/23 Time Last Intake of Solids: 22:00 Past Medical History Medical History History of hypertension resolved with wt loss Kidney stones Past Surgical History Surgical History History of wisdom tooth extraction S/P ureteral stent placement History of cystoscopy Social History Smoking Status: Never smoker tobacco type: smokeless tobacco Do You Dip or Chew Tobacco: Yes (1 can per day) Hx Alcohol Use: No alcohol intake frequency: a few times a week Hx Substance Use: No Substance Use Type Other:: hx opiate addiction Physical Exam Vital Signs Last Vital Signs Temp 36.4 C L 05/11/23 13:17 Pulse 84 05/11/23 13:17 Resp 18 05/11/23 13:17 BP 131/99 05/11/23 13:17 Pulse Ox 96 05/11/23 13:17 O2 Del Method Room Air 05/11/23 13:17 Constitutional no acute distress Eyes PERRL, conjunctivae normal, anicteric sclerae ENMT external ear and nose normal, oropharynx normal Neck normal visual inspection Respiratory no respiratory distress and no labored breathing Musculoskeletal Head/Neck/Chest: normocephalic Neurologic moves all extremities and awake Psychiatric A+Ox3, euthymic affect Testing Laboratory Results 05/11/23 07:28 05/11/23 07:28 Urine Color Yellow 05/10/23 16:25 Urine Appearance Clear (Clear) 05/10/23 16:25 Urine pH 5.0 (4.5-7.5) 05/10/23 16:25 Ur Specific [place] 1.017 (1.000-1.030) 05/10/23 16:25 Urine Protein Negative (Negative) 05/10/23 16:25 Urine Glucose (UA) Negative (Negative) 05/10/23 16:25 Urine Ketones Negative (Negative) 05/10/23 16:25 Urine Nitrite Negative (Negative) 05/10/23 16:25 Ur Leukocyte Esterase Negative (Negative) 05/10/23 16:25
[2023-05-11] MEDS ORDERED: ONDANSETRON INJ 2 MG/ML 2 ML VIAL IV PRN (13:35)
[2023-05-11] MEDS ORDERED: ePHEDrine sulfate 50 MG/ML AMP IV PRN (13:35)
[2023-05-11] MEDS ORDERED: ATROPINE SULFATE 0.1 MG/ML 10ML SYR IV PRN (13:35)
[2023-05-11] MEDS ORDERED: fentaNYL citrate PF 100 MCG/2 ML VIAL IV PRN (13:35)
[2023-05-11] MEDS: ceFAZolin 2000MG 2,000 MG/15 ML SYR IV ONE (14:54)
[2023-05-11] MEDS ORDERED: KETAMINE HCL 10MG/ML SYR ONE (14:58)
[2023-05-11] MEDS: DIATRIZOATE MEGLUMINE 30% 100ML VIAL INSTIL PRN (15:16)
--- NOTE | 2023-05-11 15:17 | Operative Report ---
PG Post Operative Report Pre & Post Diagnosis Left urolithiasis Operation Date: 05/11/23 09:45 <No data on this case meets the specified criteria> Left urolithiasis I identified the patient and participated in the time-out.: Yes Procedure Cystoscopy, left retrograde pyelogram with radiograph interpretation, left ureteral stent placement Operation Date: 05/11/23 09:45 <No data on this case meets the specified criteria> Surgeon Preston Ferrell MD [employer] None Estimated Blood Loss 5 Findings See Below Mild left hydronephrosis. Stent in appropriate position. Specimens None Drains 6 Lebanese by 26 cm left ureteral stent Anesthesia Type MAC Complications none Indications 47-year-old male with a 5 mm left proximal ureteral calculus and intractable pain. Description of Procedure After informed consent was obtained, the patient was transported operative suite. MAC anesthesia was induced. The patient was placed in dorsal lithotomy position prepped and draped in a sterile fashion. They received preoperative Ancef for antibiotic prophylaxis. An appropriate surgical timeout was performed. A 22 Lebanese rigid scope was inserted per urethra into the bladder. Goff cystoscopy revealed no stones or lesions. I turned my attention the left ureteral orifice and intubated this with a 5 Lebanese open-ended catheter. A left retrograde pyelogram was shot which showed mild left hydronephrosis. A sensor wire was advanced into the kidney and confirmed fluoroscopically. A 6 Lebanese by 26 cm left ureteral stent was deployed with a good proximal coil in the renal pelvis and a good distal coil noted in the bladder. These were confirmed fluoroscopically and under direct visualization, respectively. The bladder was emptied and the scope was removed. This concluded the end of the case. All counts were correct at the end of the case. I was present, scrubbed, and actively participated for the entirety of the procedure. I attest to the content of the Intraoperative Record and any orders documented therein. Any exceptions are noted below.
[2023-05-11] MEDS ORDERED: KETOROLAC 30 MG/ML VIAL ONE (15:18)
--- NOTE | 2023-05-11 15:37 | Fluoroscopy Report ---
FL retrograde includes kub CLINICAL HISTORY: LEFT COMPARISON STUDY: CT of the abdomen and pelvis May 07, 2023. KUB May 10, 2023. FLUOROSCOPY TIME: 6.7 seconds. Ka, r: 3.7 mGy FLUOROSCOPIC IMAGES: 1 FINDINGS: Fluoroscopy was provided during left retrograde pyelogram with left ureteral stent insertio n. Proximal aspect of the ureteral stent projects over the left collecting system. IMPRESSION: Fluoroscopy provided during left retrograde pyelogram with left ureteral stent insertion . ACT 112: Negative or not required by law. Electronically signed by: Wm Humphrey M.D. 05/11/2023 3:35 PM
--- NOTE | 2023-05-11 15:47 | Anesthesiology Progress Note ---
Date of Service May 11, 2023 Anesthesia Post Procedure Vital Signs Vital Signs: Temp Pulse Pulse Pulse Resp BP BP 05/11/23 15:45 36.4 C L 68 15 141/92 H 05/11/23 15:35 73 19 147/87 H 05/11/23 15:26 36.2 C L 88 12 131/95 05/11/23 13:17 36.4 C L 84 18 131/99 05/11/23 07:11 36.4 C L 71 14 144/87 H 05/10/23 22:22 36.4 C L 86 18 168/99 H 05/10/23 19:34 63 18 170/76 H 05/10/23 16:18 36.5 C 97 H 20 199/109 H Pulse Ox O2 Del Method 05/11/23 15:45 95 Room Air 05/11/23 15:35 95 Room Air 05/11/23 15:26 96 Room Air 05/11/23 13:17 96 Room Air 05/11/23 07:11 95 Room Air 05/10/23 22:22 96 Room Air 05/10/23 19:34 98 Room Air 05/10/23 16:18 97 Room Air Pain Intensity Right Flank: Pain Intensity: 3 Transfer of Care Handoff Completed per policy Notes Mental Status: alert / awake / arousable and participated in evaluation Patient Amnestic to Procedure: Yes Nausea / Vomiting: adequately controlled Pain: adequately controlled Airway Patency, RR, SpO2: stable & adequate BP & HR: stable & adequate Hydration State: stable & adequate Anesthetic Complications: no major complications apparent and Pt Satisfied with anesthetic care
--- NOTE | 2023-05-11 18:24 | Discharge Summary ---
Date of Service May 11, 2023 Admission HPI Per Admitting Provider Remington is a 47 year old male with a PMH significant for Opioid use disorder on Suboxone and recently diagnosed left proximal ureteral stone on 05/07/23 who presented to the [facility] ED on 05/10/23 due to uncontrolled pain. Per the ED intake, the patient called the Urology office and was instructed to come to the ED as they did not have available appointments. The patient was seen in the ED on 05/07 and was diagnosed with an approximately 5-7 mm left proximal ureteral stone. Labs were stable and the patient was discharged on flomax. Today the patient was noted to be hypertensive on arrival at 199/109 but otherwise stable. Labs were significant for a cr of 1.59 (baseline is near 1.1). The patient was given 15 mg IV toradol and 1L NSS without improvement in his symptoms. We were asked to admit the patient for uncontrolled pain and Urology evaluation tomorrow. At the time of the exam the patient was sitting in bed in no acute distress. He states that his left flank pain has been uncontrolled since 05/07. He has been using flomax as prescribed and has been using tylenol and aleve at home. He takes 1/2 of his SL Suboxone in the am and 1/2 in the PM, he has not had his HS dose yet. This is his second kidney stone in the past 6 months. Please refer to Dr. Magana's attestation for any changes to the treatment plan Admission Exam Per Admitting Provider Physical Exam: General: In no acute distress, stated age, well-nourished, good hygiene HEENT: Normocephalic, atraumatic, no scleral icterus, pupils around round, symmetrical, and reactive to light, dry mucus membranes, trachea midline, no thyromegaly Chest/Pulm: No respiratory distress, symmetrical chest expansion, clear breath sounds throughout Cardiac: RRR, no murmurs noted Abdomen: Negative for ascites and bruising, normoactive bowel sounds, soft, mild tender to palpation in the left lateral abdomen : Negative CVA tenderness BL Musculoskeletal: Symmetrical and without signs of acute trauma, upper and lower extremities with full ROM, no atrophy, spasticity, or flaccidity Extremities: Radial, dorsalis pedis, and posterior tibial pulses are intact and symmetrical, no edema noted in the BL LE's Skin: Warm, dry, no rashes , lesions, or scars noted Neuro: Alert and oriented to person, place, month, year, and president, no focal defects, no tremors noted Psych: No acute distress, calm and cooperative during the exam Principal Diagnosis Kidney stone, uncontrolled pain, FRANCISOC Discharge Exam General: WD/WN obese male resting in bed, more comfortable appearing since stent placement, tolerated liquid diet and wanting to go home if tolerating upgraded diet for tonight Head atraumatic, normocephalic, thick neck, mmm, trachea midline Resp: even/unlabored, slightly diminished in the bases, no w/c/r, on room air 96% CV: RRR, no significant m/r/g, no pitting edema GI: abdomen is soft ,+BS, slight tenderness R flank however no overt tenderness on palpation, no guarding/rigidity : no CVA tenderness, no ferguson MSK/Neuro: nonfocal Psych: AOx3, cooperative with exam but frustrated as has upcoming cruise and prior pain w/ stent Discharge Data Allergies Allergy/AdvReac Type Severity Reaction Status Date / Time No Known Allergies Allergy Unknown Verified 05/10/23 19:41 Consultations 05/10/23 19:22 ED Decision to Admit Stat 05/10/23 20:49 Consult Urology Routine Procedures Performed Operation Date: 05/11/23 09:45 Actual Procedures p Cystoscopy, Left Retrograde Pyelogram, Left Stent Placement(Left) - Preston Ferrell MD Ordered Studies KUB X-Ray 05/10/23 16:19 KUB HISTORY: left side ureteral stone on CT 3 days ago COMPARISON: Abdomen and pelvis CT 05/07/2023. FINDINGS: The bowel gas pattern is unremarkable. There are no dilated loops of small bowel to suggest an obstruction. No change in position of the 7 mm stone within the proximal left ureter. This is adjacent to the left L4 transverse process. No additional renal calculi identified. Calcifications in the deep pelvis are consistent with phleboliths. No pneumoperitoneum or pneumatosis. IMPRESSION: No change in position of the 7 mm proximal left ureteral stone. ACT 112: Negative or not required by law. Electronically signed by: Tanner Jones M.D. 05/10/2023 6:19 PM Retrograde Pyelogram 05/11/23 00:00 FL retrograde includes kub CLINICAL HISTORY: LEFT COMPARISON STUDY: CT of the abdomen and pelvis May 07, 2023. KUB May 10, 2023. FLUOROSCOPY TIME: 6.7 seconds. Ka, r: 3.7 mGy FLUOROSCOPIC IMAGES: 1 FINDINGS: Fluoroscopy was provided during left retrograde pyelogram with left ureteral stent insertion. Proximal aspect of the ureteral stent projects over the left collecting system. IMPRESSION: Fluoroscopy provided during left retrograde pyelogram with left ureteral stent insertion. ACT 112: Negative or not required by law. Electronically signed by: Wm Humphrey M.D. 05/11/2023 3:35 PM Hospital Course (1) Renal colic on left side: Presented to the ED on 05/10 with uncontrolled left flank due to recently diagnosed 5-7 mm left ureteral stone . Had stone about 6 months ago as well, does endorse tea consumption No leukocytosis, UA does not appear infected BUN/Cr to 19/1.56 w/ baseline Cr~1-1.1 1L IVF w/ NSS in ER, additional 1L LR bolus on admission Urology consulted Remains on flomax (reported had been continuous on this at home) BUN/Cr 17/1.4 on repeat, remains on maintenance IVF however appears had only been ordered x 1L total --> placed additional order for continuous NSS @ 100cc/hr while waiting for OR Did NOT pass stone overnight and remained NPO for cysto/stenting with urology Covering w/ ancef IV w/ cysto Pain control/antiemetics as needed --> cautious use additional narcotics w/ hx opioid use disorder/current Suboxone use -- continue Suboxone SL BID - cautious use w/ Toradol given elevated Cr however suspected 2nd to stone Will check Vitamin D given repeat episode of stone this year. Ca was 10.2/borderline on 05/07 not on any supplementation at baseline --> LOW, PO supplementation sent at dc Counselled to decrease tea consumption 05/11 PM -- tolerated clear liquid diet, advancing to regular and if tolerates wanting to go home -- plan to send on Flomax/Ditropan/Pyridium, prn Toradol for short course. repeating bmp for this evening and as long as renal function improved ok for dc --BUN/Cr 15/1.38 -- encouraged to push lots of fluids at dc (2) Opioid use disorder: Patient currently takes 1/2 Suboxone SL in the am and 1/2 in the PM Continued usual dosing, Tylenol/Toradol as need for above Plan discharged in evening after stent placement --> meds for pain, urology outpt f/u Total Time Total Time Spent Total Time Spent (In Minutes): 45 Discharge Plan Discharge Items Patient Disposition: Home - Self-Care Reason For Visit: UNCONTROLLED KIDNEY STONE PAIN Discharge Diagnosis: Kidney stone, uncontrolled pain Goals: You have been hospitalized for an urgent problem which required surgery. During your stay at [facility], we have made an effort to correct the problem that brought you to the hospital while keeping you as comfortable as possible. Surgery and medications were used to bring your condition under control and your discharge instructions will include directions for any medications you should take after leaving the hospital. Please make sure to follow the advice of your surgeon regarding follow up with the surgeon and with your primary care provider. Activity: As commented below Non-emergency contact: Primary Care Provider and Urologist Call non-emergency contact if: you have any medication questions, your symptoms worsen and your pain is not controlled Follow-up/Referrals: Trino Clancy DO [Outside Practitioners] - Preston Ferrell MD [Physician] - PCP,NO [Primary Care Provider] - Diet: Regular Addtl Attending Provider Instructions: You have been hospitalized for uncontrolled pain due to kidney stone. Your renal function (creatinine) was elevated due to stone and you were provided IV fluids, flomax and urology was consulted and you underwent stent placement. You should continue hydration at discharge as well as Flomax daily and will need outpatient follow up with Dr Ferrell for continued treatment of the stone given the location. Hopefully you may be able to pass this on your own now that the stent is in place with continued Flomax but you may need further intervention depending your progress. You should continue Tylenol and have been sent a short course of Toradol 10mg every 8 hours as needed -- to use cautiously as needed for pain. You can continue your usual Suboxone in the meantime. You should avoid taking additional NSAIDs like ibuprofen while taking the Toradol for pain to prevent GI upset/increased risk for bleeding. I have also sent in a prescription for Ditropan to use as needed twice daily for ureteral/stent spasm discomfort. We have also sent in for pyridium as needed for bladder spasm. As discussed this can cause discoloration of urine/orange color. I checked a vitamin D level given you had stones earlier this year and sometimes low Vitamin D level can contribute to more stones and have been started on oral supplementation daily. You should limit caffeine/tea intake as discussed as this can also lead to stones. Consider lemonade. You should follow up with primary care in the next 7-10 days to monitor your progress after discharge. You should return to the ER with any fever/chills, uncontrolled pain, inability to keep up with oral hydration, or for any other symptoms concerning for you. It has been a pleasure being a part of the medical team providing for you while you have been in the hospital. Take care! Pending Studies at Discharge: No Stand-Alone Forms: [facility], [facility] Medications and DC Order Prescriptions: New oxybutynin chloride 5 mg Tablet 5 mg PO BID PRN (Reason: bladder or ureteral spasms) Qty: 14 0RF cholecalciferol (vitamin D3) [Vitamin D3] 25 mcg (1,000 unit) tablet,chewable 1,000 unit PO DAILY Qty: 30 0RF ketorolac 10 mg tablet 10 mg PO Q8H PRN (Reason: pain) Qty: 10 0RF phenazopyridine [Pyridium] 100 mg tablet 100 mg PO Q8H PRN (Reason: bladder spasms) Qty: 14 0RF Continued buprenorphine-naloxone 8-2 mg film 1 film sublingual DAILY tamsulosin [Flomax] 0.4 mg capsule 0.4 mg PO DAILY Qty: 30 0RF Discharge Orders: Discharge Order (Routine); Ordered 05/11/23 Ordered By: Vibha Aguilera Admission Data Admit Date/Time: 05/10/23 20:36 Attending Provider: Je Wei Admit Provider: Miles Magana Primary Care Provider: PCP,NO Other Providers: Miles Magana; Richie Dubon Other Interventions: Discharge Summary Assessment (RN) Last Done: 05/11/23 21:23 Supervising Physician Co-Signing Physician Notes The patient was not seen by me. The chart was reviewed. Case discussed with JOCELYN Jalloh. Agree with assessment and plan. The patient is medically stable for discharge today, May 12 Coding Level of Care Code 03403 INP/OBS DISCH >30 MIN Diagnoses Renal colic on left side N23 Opioid use disorder F11.90
[2023-05-11 20:06] LABS: BUN Creatinine Ratio 10.9 (10-20); Calcium 8.8 mg/dl (8.6-10.3); Est GFR (African American) 70.6 ml/min; Est GFR (Non-African American) 60.9 ml/min; Potassium 4.3 mmol/L (3.5-5.1)
== END 2023-05-11 21:29 | disposition home or self-care (01) | DRG 660 ==
LOC: ED 15:59 → SUATTDRO 20:36 → 3N 20:36